=== PATIENT | female | born 1955 | race Caucasian/White ===

== ENCOUNTER 2017-01-05 06:04 | Day surgery (SDC) | payer OTHER ==
[~2017-01-05] VITALS: Ht 162.6 cm; Wt 89.3 kg
[2017-01-05] VITALS (10 sets, daily range): BP systolic 84–149; BP diastolic 52–66; PULSE 54–88; RESP 9–18; Ht 162.6 cm; Wt 89.3 kg
[~2017-01-05 06:04] MED LIST: OMEP40CA6 PO
[2017-01-05] MEDS ORDERED: CEFAZOLIN 1 GM/50 ML (PMX) 50 ML IVPB SCH (08:00)
--- NOTE | 2017-01-05 08:39 | RADRPT ---
PROCEDURE: XR Chest AP portable CLINICAL INDICATION: Transurethral bladder resection, bladder CA, preop TECHNIQUE: An AP portable radiograph of the chest was submitted. COMPARISON: None. FINDINGS: Support Hardware: None Cardiovascular: The cardiovascular silhouette appears unremarkable. Lung Hernandez: The lung hernandez appear clear with no nodule, alveolar infiltrate, or interstitial promi nence evident. Pleural Spaces: No pneumothorax or pleural effusion is identified. Osseous Structures: Moderate diffuse degenerative spine changes are noted. Soft Tissues: The soft tissues appear generous. IMPRESSION: Unremarkable portable chest. Physician Sancho Date Time Electronically viewed and signed by Physician Sancho on 01/05/2017 08:38 RH/
[2017-01-05] MEDS ORDERED: MIDAZOLAM 1 MG/ML 2 ML INJ ONE (09:28)
[2017-01-05] MEDS ORDERED: ONDANSETRON 4 MG INJ ONE (09:28)
[2017-01-05] MEDS ORDERED: GLYCOPYRROLATE 0.4 MG INJ ONE (09:28)
[2017-01-05] MEDS ORDERED: NEOSTIGMINE 3 MG/3 ML SYRINGE ONE (09:28)
[2017-01-05] MEDS ORDERED: CEFAZOLIN 1 GM INJ ONE (09:28)
[2017-01-05] MEDS ORDERED: FENTAnyl 50 MCG/ML VIAL ONE ×2 (09:28→10:53)
[2017-01-05] MEDS ORDERED: ROCURONIUM 50 MG INJ ONE (09:28)
[2017-01-05] MEDS ORDERED: PROPOFOL 20 ML ONE (09:28)
[2017-01-05] MEDS ORDERED: DEXAMETHASONE 4 MG/ML 1 ML INJ ONE (09:29)
--- NOTE | 2017-01-05 10:02 | HP ---
DATE OF ADMISSION: 01/05/2017 CHIEF COMPLAINT: Bladder cancer. HISTORY OF PRESENT ILLNESS: This patient has a history of bladder cancer. She is status post TURBT , chemotherapy and radiation in [place]. A recent cystoscopy in our office revealed further bladder tumor. She is now scheduled to undergo transurethral resection of her bladder tumor. PAST MEDICAL HISTORY: Bladder cancer. PAST SURGICAL HISTORY: Hysterectomy. ALLERGIES: NO KNOWN DRUG ALLERGIES. SOCIAL HISTORY: No smoke, no alcohol. FAMILY HISTORY: Noncontributory. REVIEW OF SYSTEMS: CONSTITUTIONAL: No fevers, no chills, no change in appetite, weight gain or weight loss. HEENT: No loss of hearing, no ear or sinus pain. No rhinorrhea, nosebleed or sore throat. CARDIOVASCULAR: No chest pain, no shortness of breath or heart palpitations. RESPIRATORY: No cough. No phlegm production, wheezing or hemoptysis. GASTROINTESTINAL: No abdominal pain, no cramping, no nausea. HEMATOLOGY/LYMPHATIC: No known bleeding problems. No easy bruising. No lymph node enlargement. PHYSICAL EXAMINATION: CONSTITUTIONAL: The patient appears to be in no acute distress. GASTROINTESTINAL: Abdomen is soft, normal bowel sounds, nondistended, nontender. Liver and spleen normal. GENITOURINARY: Kidneys, no CVA tenderness. Bladder, no suprapubic distention. EXTREMITIES: No edema. ASSESSMENT: Bladder cancer. PLAN: Transurethral resection of bladder tumor. The procedure has been explained to the patient in detail. Risks, benefits have been discussed. Other options have been discussed. The patient unde rstands that risks include, but are not limited to infection, bleeding, damage to adjacent structure s, heart problems, lung problems, possibility of need for further surgery, DVT, PE, OH, CVA, nonreso lution of symptoms, recurrence of symptoms, need for other treatments, need for other surgeries, elder dder perforation and urinary incontinence, ureteral injury, ureteral stricture, urethral stricture. All of her questions have been answered, no guarantees given. She would like to proceed. Dictated By: HAMIDA VU MD, SR/NTS Conf#: [id number] DID#: [id number]
[2017-01-05] MEDS ORDERED: KETOROLAC 30 MG INJ ONE (10:29)
[2017-01-05] MEDS ORDERED: MIDAZOLAM 1 MG/ML 2 ML INJ IV PRN (10:30)
[2017-01-05] MEDS ORDERED: MEPERIDINE 25 MG INJ IV PRN (10:30)
[2017-01-05] MEDS ORDERED: ONDANSETRON 4 MG INJ IV PRN (10:30)
[2017-01-05] MEDS ORDERED: TRIMETHOBENZAMIDE 100 MG/ML VIAL IM PRN (10:30)
[2017-01-05] MEDS ORDERED: LABETALOL HCL 20MG INJ IV PRN (10:30)
[2017-01-05] MEDS ORDERED: EPHEDrine SULFATE 50 MG/5 ML SYG IV PRN (10:30)
[2017-01-05] MEDS ORDERED: DIPHENHYDRAMINE 50 MG INJ IV PRN (10:30)
[2017-01-05] MEDS ORDERED: HYDROmorphONE (0.2 MG/ML) 10ML SYG IV PRN ×3 (10:30)
[2017-01-05] MEDS ORDERED: FENTAnyl 50 MCG/ML VIAL IV PRN ×3 (10:30)
[2017-01-05] MEDS ORDERED: hydrALAzine 20 MG INJ IV PRN (10:30)
--- NOTE | 2017-01-05 11:12 | PDOCDIS ---
Discharge Instructions CONDITION Patient Condition: Good HOME CARE INSTRUCTIONS: Diet Instructions: Regular ACTIVITY: Activity Restrictions: Avoid heavy lifting Bathing Restrictions: Shower FOLLOW UP/APPOINTMENTS Appointments one week OTHER ORDERS: Other Orders: keep cordova catheter to gravity HAMIDA VU January 05, 2017 11:12
--- NOTE | 2017-01-05 14:04 | OPR ---
DATE OF OPERATION: 01/05/2017 PREOPERATIVE DIAGNOSIS: Urothelial carcinoma of bladder or urethra. 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 OPERATION PERFORMED: 1. Cystoscopy with bladder biopsy. 2. Cystoscopy with bilateral ureteral catheterization for cytology. 3. Transurethral resection of urethral carcinoma (possibly in the diverticulum). INDICATIONS FOR PROCEDURE: This patient has a history of bladder cancer, status post radiation and chemotherapy, resection in [place]. Her workup has revealed further carcinoma. She is scheduled to undergo treatment of this problem. A preoperative MRI has revealed a lesion within the urethra worr isome for urothelial carcinoma within the diverticulum. Procedure has been explained to the patient in detail. Risk, benefits have been discussed. She understands risks include, but are not limited to infection, bleeding, damage to adjacent structures, heart problems, lung problems, possibility o f need for further surgery, DVT, PE, VT, CVA, nonresolution of symptoms, recurrence of symptoms, nee d for other treatments, need for other surgeries, bladder injury, urethral injury, incontinence, str icture or contracture formation. All of her questions have been answered, no guarantees given. She would like to proceed. FINDINGS: The left ureter upon catheterization exhibited a hydronephrotic drip. However, the patie nt's preoperative imaging had not revealed hydronephrosis. She was not preoperatively scheduled for ureteroscopy. Therefore, ureteroscopy was not done. A relatively large left urethral tumor was laya ntified which appeared to be deeply imbedded within the urethra. Furthermore, there was an appearan ce of a possible diverticulum within the urethra, where the tumor kept on extruding out as it was be ing resected. PROCEDURE IN DETAIL: The patient was brought to the operating room, underwent general anesthesia. She was placed in lithotomy position. Perineum and genitalia were prepped and draped in the usual s terile fashion. A 22-Italian cystoscope was then placed transurethrally. The papillary fronds were identified within the left urethral urethra near the bladder. These papillary fronds appeared to be mobile and possibly embedded as the urethra was pushed the tumor would pop out, but then would retr act back inside the urethra on the left side. Next, the bladder was examined within the bladder, no tumors were seen. The bladder mucosa did not contain any papillary tumors. The ureteral orifices were orthotopic. Bladder was washed for cytology collected and sent to pathology as bladder washing for cytology. The right ureteral orifice was intubated with a ureteral catheter. The ureter was then washed. The catheter was advanced up to the pelvis and washed in that area as well. The washings were collecte d and sent to pathology as right ureteral washing for cytology. Next, the left ureter was intubated and washed. Upon placement of the left ureteral catheter a brisk drainage into the collecting cup was identified, worrisome for a hydronephrotic drip. About 50 to 60 mL of fluid was collected from the left ureter. The ureter was washed with about 20 mL of saline, but about 50 to 60 mL of fluid w as collected and sent to pathology. There appeared to be a hydronephrotic drip from the left ureter . This was sent to pathology as left ureteral washing for cytology. Since patient had not been bhumi eduled for ureteroscopy a ureteroscopy on the left side was not done. The rigid biopsy forceps was then used to obtain biopsies from the bladder. The posterior bladder w all, trigone, left and right lateral yousif were all biopsied. These were sent to pathology for perm anent sectioning. The 26-Italian continuous resectoscope was placed under direct vision. The button electrode was then used to cauterize the areas of bladder biopsy. Once this was done, the resectoscope was used to re sect the tumor within the urethra. The cautery loop was brought onto the left area of the urethra. The cautery loop was used to resect what appeared to be a mobile tumor. As the resection was negro ed the scope was further compressed against the urethra on the left side and also along the posterio r aspect of the urethra. With compression further tumor popped out of what appeared to be possibly a diverticulum or a crevice. This tumor was also resected as the resection was carried a mucosal li earelne cavity was identified. This was then further resected. One finger was placed transvaginally to identify the area of resection and ensured that there was no perforation into the vagina. Resectio n was carried down to what appeared to be urethral muscle. All visible tumor was resected in this f ashion. The area of resection was essentially between the 2 o'clock position to the 6 o'clock posit ion along the left side of the urethra down to the posterior aspect. Furthermore, a digital examina tion through the vagina revealed no evidence of tumor extending into the vaginal mucosa. At this po int, the tumor specimen were all collected and sent to pathology as left urethral tumor resection. Next, the area of resection was cauterized using the button electrode. The entire resection was quirino ng carried with the bipolar resection instrumentation. Once excellent hemostasis had been obtained, bladder was reexamined. No further tumor specimen was seen. The areas of treatment were further e xamined and no bleeding was identified. A 22-Italian catheter was placed in the bladder. Bladder wa s placed on drainage. Drainage was clear. Patient was then placed back in a supine position. She was awakened, extubated, and taken to recovery room stable. POSTOPERATIVE CONDITION: Stable. COMPLICATIONS: None. BLOOD LOSS: Minimal. BLOOD ADMINISTERED: None. SPECIMENS SENT TO LAB: Washings from bladder, left and right ureters for cytology, bladder biopsies from the posterior bladder wall, right and left lateral yousif as well as the trigone. Furthermore, resection from left urethra tumor. Dictated By: HAMIDA VU MD SR/KARLA Conf#: [id number] DID#: [id number]
--- NOTE | 2017-01-06 05:56 | DS ---
DATE OF ADMISSION: 01/05/2017 DATE OF DISCHARGE: 01/05/2017 ADMITTING DIAGNOSIS: Urothelial carcinoma of bladder. DISCHARGE DIAGNOSIS: Urothelial carcinoma of the urethra. HOSPITAL COURSE: The patient was admitted to the hospital and underwent a transurethral resection o f tumor in the urethra as well as bilateral ureteral catheterization. She tolerated the procedure w ell, then she was transferred to recovery room. Once the patient was stable, tolerating her diet, r emaining afebrile and pain was well controlled, she was discharged home. DISCHARGE INSTRUCTIONS: Activity as tolerated. No heavy lifting. The patient may shower. Follow up in 1 to 2 weeks. MEDICATIONS: 1. [place]. 2. Cipro. Sifuentes catheter care was also instructed to the patient. Dictated By: HAMIDA VU MD, SR/KARLA Conf#: [id number] DID#: [id number]
== END 2017-01-05 14:20 | disposition home or self-care (01) ==
LOC: SDS 06:04
PROVIDERS: ATTEND Surgery Surgical Oncology
DX: C67.5 Malignant neoplasm of bladder neck (principal); E66.9 Obesity, unspecified; Z68.33 Body mass index [BMI] 33.0-33.9, adult
CPT/HCPCS: 52234; 71010; 88104; 88305; J0690; J1100; J1885; J2250; J2405; J2710; J3010; Z7512; Z7610

== ENCOUNTER 2017-01-21 08:00 | Emergency (ER) | payer OTHER ==
[~2017-01-21] VITALS: Ht 160 cm; Wt 90.0 kg
[2017-01-21 08:04] VITALS: Ht 160 cm; Wt 90.0 kg
[2017-01-21] MEDS ORDERED: CIPR500T4 PO (08:52)
--- NOTE | 2017-01-21 09:07 | ERD ---
ER Documentation Chief Complaint Date/Time DATE: 01/21/17 TIME: 09:06 Chief Complaint frequency of urination x 1 week , h/o bladder ca HPI This is a 61-year-old female with a history of bladder cancer who had surgery last week and was having an indwelling Sifuentes for 7 days. The Sifuentes was removed on Thursday, 2 days ago she says since that time she has been constantly dribbling urine uncontrollably. She has no hematuria she has no stomach pain no fever no back pain no hematuria no dysuria. She said that her doctor's office does not open until 9 so she is here. She is wanting another catheter because of the uncontrolled leaking having to wear a diaper. ROS All systems reviewed and are negative except as per history of present illness. Medications Home Meds Active Scripts Ciprofloxacin Hcl* (Ciprofloxacin Hcl*) 500 Mg Tablet, 500 MG PO BID for 7 Days , TAB Prov:BALDEV SHIELDS DO 01/21/17 Discontinued Reported Medications Omeprazole* (Omeprazole*) 40 Mg Capsule., 40 MG PO QAM, #30 CAP 03/13/16 Allergies Allergies: Coded Allergies: No Known Allergy (Unverified , 01/21/17) PMhx/Soc History of Surgery: Yes (APPENDECTOMY 2001, HYSTERCTOMY , Bladder recection 12/2016) Anesthesia Reaction: No Hx Neurological Disorder: No Hx Respiratory Disorders: No Hx Cardiac Disorders: No Hx Psychiatric Problems: No Hx Miscellaneous Medical Probl: No Hx Alcohol Use: No Hx Substance Use: No Hx Tobacco Use: No Smoking Status: Never smoker FmHx Family History: No coronary disease Physical Exam Vitals Vital Signs Date Time Temp Pulse Resp B/P Pulse Ox O2 Delivery O2 Flow Rate FiO2 01/21/17 08:04 98.1 67 18 129/58 98 Physical Exam Const: Well-developed, well-nourished Head: Atraumatic, normocephalic Eyes: Normal Conjunctiva, PERRLA, EOMI, normal sclera, no nystagmus ENT: Normal External Ears, Nose and Mouth, moist mucus membranes. Neck: Full range of motion. No meningismus, no lymphadenopathy. Resp: Clear to auscultation bilaterally, no wheezing, rhonchi, rales Cardio: Regular rate and rhythm, no murmurs, S1 S2 present Abd: Soft, non tender x 4, non distended. Normal bowel sounds, no guarding or rebound, no pulsitile abdominal masses or bruits Skin: No petechiae or rashes, no ecchymosis , no maculopapular rash Back: No midline or flank tenderness Ext: No cyanosis, or edema, FROM x 4, normal inspection, neurovascularly intact x 4 Neur: Awake and alert, STR 5/5 x 4, sensation intact x 4, no focal findings, cerebellum intact Psych: Normal Mood and Affect Procedures/MDM We will Place Sifuentes catheter and have her follow-up with her urologist this morning We will cover with Cipro Departure Diagnosis: Primary Impression: Genitourinary symptoms Condition: Stable Patient Instructions: Sifuentes Catheter, Care Referrals: DOCTOR,NOT ON STAFF (PCP) BALDEV SHIELDS DO January 21, 2017 09:07
== END 2017-01-21 11:06 | disposition home or self-care (01) ==
LOC: E/R 08:00
DX: R35.0 Frequency of micturition (principal); Z85.51 Personal history of malignant neoplasm of bladder
CPT/HCPCS: 51702; 87086; Z7502; Z7610

== ENCOUNTER 2017-03-06 05:35 | Inpatient (IN) | payer OTHER ==
[~2017-03-06] VITALS: Ht 162.6 cm; Wt 90.0 kg
[2017-03-06] VITALS (8 sets, daily range): BP systolic 115–159; BP diastolic 44–77; PULSE 69–115; RESP 8–18; Ht 162.6 cm; Wt 90.0 kg
[~2017-03-06 05:35] MED LIST changes: +CIPR500T4 PO; -OMEP40CA6 PO
[2017-03-06] MEDS ORDERED: CEFAZOLIN 1 GM/50 ML (PMX) 50 ML IVPB ONE (06:00)
[2017-03-06] MEDS ORDERED: OMEP20CA16 PO (06:42)
[2017-03-06 06:55] LABS: ADD SCAN DIFF NO
[2017-03-06] MEDS ORDERED: LACTATED RINGER'S 1,000 ML IV SCH (07:00)
[2017-03-06 07:17] LABS: BASOPHILS % 0.4 % (0.0-2.0); EOSINOPHILS # 0.1 10^3/ul (0.0-0.5); HEMATOCRIT 38.8 % (37.0-47.0); HEMOGLOBIN 12.6 g/dl (12.0-16.0); LYMPHOCYTES # 1.5 10^3/ul (0.8-2.9); LYMPHOCYTES % 27.6 % (15.0-51.0); MEAN CORPUSCULAR HEMOGLOBIN 29.5 pg (29.0-33.0); MEAN CORPUSCULAR HGB CONC 32.5 g/dl (32.0-37.0); MEAN CORPUSCULAR VOLUME 90.9 fl (82.0-101.0); MEAN PLATELET VOLUME 10.6 fl (7.4-10.4); MONOCYTE # 0.4 10^3/ul (0.3-0.9); MONOCYTES % 6.6 % (0.0-11.0); NEUTROPHIL # 3.5 10^3/ul (1.6-7.5); NEUTROPHILS % 63.2 % (39.0-77.0); PLATELET COUNT 274 10^3/UL (140-415); RED BLOOD COUNT 4.27 10^6/ul (4.20-5.40); RED CELL DISTRIBUTION WIDTH 13.3 % (11.5-14.5); WHITE BLOOD COUNT 5.5 10^3/ul (4.8-10.8)
[2017-03-06 07:30] LABS: ADD UMIC YES; UR ASCORBIC ACID NEGATIVE (NEGATIVE); UR BACTERIA FEW /HPF (NONE SEEN); UR BILIRUBIN (Dip) NEGATIVE (NEGATIVE); UR BLOOD (Dip) 2+ mg/dL (NEGATIVE); UR CLARITY CLOUDY (CLEAR); UR COLOR YELLOW (YELLOW); UR GLUCOSE (Dip) NEGATIVE (NEGATIVE); UR KETONES (Dip) NEGATIVE (NEGATIVE); UR LEUKOCYTE ESTERASE (Dip) 2+ Leu/ul (NEGATIVE); UR NITRITE (Dip) NEGATIVE (NEGATIVE); UR RBC 30 /HPF (0-5); UR SPECIFIC GRAVITY (Dip) 1.011 (1.003-1.030); UR SQUAMOUS EPITHELIAL CELL FEW /HPF (FEW); UR TOTAL PROTEIN (Dip) 1+ mg/dl (NEGATIVE); UR UROBILINOGEN (Dip) NEGATIVE (NEGATIVE)
[2017-03-06 07:44] LABS: PROTIME 13.2 Sec (12.2-14.2)
[2017-03-06 07:45] LABS: PARTIAL THROMBOPLASTIN TIME 29.4 Sec (25.0-35.0)
[2017-03-06 08:19] LABS: CALCIUM 9.5 mg/dl (8.4-10.2); CREATININE 0.7 mg/dl (0.44-1.00); POTASSIUM 3.6 mmol/L (3.5-5.1)
[2017-03-06] MEDS ORDERED: MIDAZOLAM 1 MG/ML 2 ML INJ ONE (08:23)
[2017-03-06] MEDS ORDERED: FENTAnyl 50 MCG/ML VIAL ONE (08:23)
[2017-03-06] MEDS ORDERED: PROPOFOL 20 ML ONE (08:23)
[2017-03-06] MEDS ORDERED: ROCURONIUM 50 MG INJ ONE ×2 (08:29→13:15)
[2017-03-06] MEDS ORDERED: SUCCINYLCHOLINE CHLORIDE 100 MG/5 ML SYG IV ONE (08:30)
[2017-03-06] MEDS ORDERED: PHENYLephrine (100 MCG/ML) 5ML SYG ONE (08:30)
[2017-03-06] MEDS ORDERED: morphine SULFATE/PF (10 MG/10 ML) INJ ONE (08:31)
[2017-03-06] MEDS ORDERED: BUPIVACAINE 0.25% (MPF) 30 ML INJ ONE (08:31)
[2017-03-06] MEDS ORDERED: CEFTRIAXONE 2 GM/NS 50 ML IVPB ONE (10:00)
[2017-03-06] MEDS ORDERED: metroNIDAZOLE 500 MG/NS (PMX) 100 ML IVPB ONE (10:00)
[2017-03-06] MEDS ORDERED: LIDOCAINE 2%/EPI 30 ML INJ ONE (10:03)
[2017-03-06] MEDS ORDERED: HYDROmorphONE 2 MG/ML SYG ONE ×4 (10:06→14:07)
[2017-03-06] MEDS ORDERED: ONDANSETRON 4 MG INJ IV PRN ×2 (12:30→18:00)
[2017-03-06] MEDS ORDERED: HYDROmorphONE 1 MG/ML SYG IV PRN (12:30)
[2017-03-06] MEDS ORDERED: DIPHENHYDRAMINE 50 MG INJ IV PRN (12:30)
[2017-03-06] MEDS ORDERED: MEPERIDINE 25 MG INJ IV PRN (12:30)
[2017-03-06] MEDS ORDERED: EPHEDrine SULFATE 50 MG/5 ML SYG IV PRN (12:30)
[2017-03-06] MEDS ORDERED: LABETALOL HCL 20MG INJ IV PRN (12:30)
[2017-03-06] MEDS ORDERED: hydrALAzine 20 MG INJ IV PRN (12:30)
[2017-03-06] MEDS ORDERED: PROCHLORPERAZINE 10 MG INJ IV PRN (12:30)
[2017-03-06 12:36] LABS: AADO2 Arterial 308.8 mmHg (7.0-24.0); Arterial Base Excess -2.7 mmol/L (-3.0-3); Arterial COHb 0.3 % (0.0-3.0); Arterial Fraction of Oxyhgb 98.5 % (93.0-99.0); Arterial HCO3 20.9 mmol/L (22.0-26.0); Arterial MetHb 0.4 % (0.0-1.5); Arterial Total Hemglobin 11.4 g/dl (12.0-18.0); MODE SURGERY
[2017-03-06] MEDS ORDERED: CA CHLORIDE 10% 10 ML SYRINGE ONE ×2 (13:15→13:18)
[2017-03-06] MEDS ORDERED: NA BICARBONATE 8.4% 50 ML SYG ONE ×3 (13:15→17:20)
[2017-03-06] MEDS ORDERED: POTASSIUM CHLORIDE 50 ML ONE ×2 (13:15→13:45)
[2017-03-06] MEDS ORDERED: HETASTARCH 6% ONE (13:19)
[2017-03-06] MEDS ORDERED: NACL ONE (13:19)
--- NOTE | 2017-03-06 14:01 | RADRPT ---
Vent Rate: 57 bpm RR Interval: 0 msec OK Interval: 164 msec QRS Duration: 82 msec QT Interval: 454 msec QTC Interval: 441 msec P-R-T Rea: 42 - 7 - 3 degrees Sinus bradycardia Nonspecific ST and T wave abnormality Abnormal ECG Electronically Signed By: Haile Mcgarry [id number]
[2017-03-06 14:03] LABS: POTASSIUM 3.2 mmol/L (3.5-5.1)
[2017-03-06 16:37] LABS: AADO2 Arterial 272.8 mmHg (7.0-24.0); Allen Test ACCEPTAB; Arterial Base Excess -2.4 mmol/L (-3.0-3); Arterial COHb 0.2 % (0.0-3.0); Arterial Fraction of Oxyhgb 98.5 % (93.0-99.0); Arterial HCO3 21.3 mmol/L (22.0-26.0); Arterial MetHb 0.3 % (0.0-1.5); Arterial Total Hemglobin 8.7 g/dl (12.0-18.0); MODE AMBU BAG
[2017-03-06 16:40] LABS: ADD SCAN DIFF NO
[2017-03-06] MEDS ORDERED: DEXAMETHASONE 4 MG/ML 1 ML INJ ONE (16:41)
[2017-03-06] MEDS ORDERED: METOCLOPRAMIDE 10 MG INJ ONE (16:41)
[2017-03-06] MEDS ORDERED: ONDANSETRON 4 MG INJ ONE (16:41)
[2017-03-06 16:43] LABS: ABNORMAL IP MESSAGE 1; HEMATOCRIT 18.6 % (37.0-47.0); MEAN CORPUSCULAR HEMOGLOBIN 30.8 pg (29.0-33.0); MEAN CORPUSCULAR HGB CONC 33.3 g/dl (32.0-37.0); MEAN CORPUSCULAR VOLUME 92.5 fl (82.0-101.0); MEAN PLATELET VOLUME 10.2 fl (7.4-10.4); PLATELET COUNT 168 10^3/UL (140-415); RED BLOOD COUNT 2.01 10^6/ul (4.20-5.40); RED CELL DISTRIBUTION WIDTH 13.3 % (11.5-14.5); WHITE BLOOD COUNT 4.9 10^3/ul (4.8-10.8)
[2017-03-06] MEDS ORDERED: ALBUMIN HUMAN 5% 500 ML ONE ×2 (16:43→16:45)
[2017-03-06] MEDS ORDERED: ALBUMIN HUMAN 25% 200 ML ONE (16:45)
[2017-03-06 17:17] LABS: ALBUMIN 2.6 g/dl (3.3-4.9); ALBUMIN/GLOBULIN RATIO 1.73; BILIRUBIN,INDIRECT 0.3 mg/dl (0-1.1); BILIRUBIN,TOTAL 0.3 mg/dl (0.2-1.3); TOTAL PROTEIN 4.1 g/dl (6.1-8.1)
[2017-03-06 17:18] LABS: CALCIUM 10.1 mg/dl (8.4-10.2); CREATININE 0.72 mg/dl (0.44-1.00); POTASSIUM 4.3 mmol/L (3.5-5.1)
[2017-03-06] MEDS ORDERED: SILVER SULFADIAZINE 1% 50 GM CR TOP ONE (17:33)
[2017-03-06 17:36] LABS: LYMPHOCYTES # 0.3 10^3/ul (0.8-2.9); NEUTROPHIL # 4.3 10^3/ul (1.6-7.5)
--- NOTE | 2017-03-06 18:22 | RADRPT ---
PROCEDURE: XR Chest. CLINICAL INDICATION: Central line placement. TECHNIQUE: Single frontal view of the chest was obtained. COMPARISON: None FINDINGS: A central venous catheter enters from right internal jugular approach with its tip in the right atri um. No pneumothorax is identified. There is plate-like atelectasis on the left heart border. Ther e are degenerative osteophytes in the thoracic spine. An NG tube is positioned distal to the GE jani ction. The heart, cardiomediastinal silhouette and hilar structures are normal. The pulmonary vascu lature is normal. There is a left-sided aorta. The remaining lung hernandez are clear. The costophr enic angles are normal. IMPRESSION: 1. Spondylosis of the thoracic spine. 2. NG tube is noted distal to the GE junction. 3. A central venous catheter enters from right internal jugular approach with its tip in the right atrium. No pneumothorax is identified. 4. There is no evidence of active cardiopulmonary disease. RPTAT:AAJJ Physician Wily Date Time Electronically viewed and signed by Physician Wily on 03/06/2017 18:21 LES/
--- NOTE | 2017-03-06 18:23 | RADRPT ---
PROCEDURE: XR Abdomen. CLINICAL INDICATION: Abdominal pain. Intraoperative. Foreign body. TECHNIQUE: Two views. AP supine and lateral supine. COMPARISON: None. FINDINGS: Midline skin maximilian are noted. Surgical drains are present in the pelvis. A nasogastric tube is p resent. There are bilateral ureteral stents extending 10/01 probable ileal loop in the right upper quadrant. A catheter is noted overlying the ileal loop. There is no other radiopaque foreign body. The bowel gas pattern is normal with no evidence of obstruction. There are no abnormal calcifications overlying the urinary tracts. There are mild degenerative changes of the spine. IMPRESSION: 1. Postoperative changes as described above. 2. No other abnormal radiopaque foreign body. RPTAT: QQ .Kyle Call MD, MD Date Time Electronically viewed and signed by .Kyle Call MD, on 03/06/2017 18:23 .R/
--- NOTE | 2017-03-06 20:38 | OPPN ---
Date/Time of Note Date/Time of Note DATE: 03/06/17 TIME: 20:37 Anesthesia Follow up Anesthesia Follow up Last documented vital signs Vital Signs Date Time Temp Pulse Resp B/P Pulse Ox O2 Delivery O2 Flow Rate FiO2 03/06/17 20:00 92 03/06/17 18:45 9 159/75 100 Mask 03/06/17 18:21 97.9 Comments CXR reviewed postop with R IJ central line at R atrial level. Line pulled back 3 cm, covered with occlusive dressing and repeat CXR ordered to confirm improved position BETH OSUNA MD Mar 06, 2017 20:38
--- NOTE | 2017-03-06 22:16 | RADRPT ---
PROCEDURE: XR Chest. CLINICAL INDICATION: Central venous line placement. TECHNIQUE: PA and Lateral views of the chest were obtained. COMPARISON: Today, about 2-1/2 hours ago. FINDINGS: Right central venous line has been repositioned to place tip in the superior vena cava right atrial junction. Nasogastric tube again seen with tip in the stomach. Cardiomegaly. Partially visualized pigtail catheter over expected location of the right renal pelvis . The lungs are clear. No signs of pleural fluid or pneumothorax are seen. The osseous structures and soft tissues are unremarkable. IMPRESSION: Right central venous line has been repositioned to place tip in the superior vena cava right atrial junction. RPTAT: UU Physician Hiral Date Time Electronically viewed and signed by Physician Hiral on 03/06/2017 22:16 RS/
[2017-03-06] MEDS: D5-NS + KCL 20 MEQ 1,000 ML IV SCH (22:39)
[2017-03-06] MEDS: CEFOTAXIME 1 GM/50 ML (PMX) 50 ML IVPB SCH (22:39)
[2017-03-06 23:05] LABS: ADD SCAN DIFF NO
[2017-03-06 23:06] LABS: ABNORMAL IP MESSAGE 1; HEMATOCRIT 32.5 % (37.0-47.0); HEMOGLOBIN 11.1 g/dl (12.0-16.0); MEAN CORPUSCULAR HGB CONC 34.2 g/dl (32.0-37.0); MEAN CORPUSCULAR VOLUME 90.8 fl (82.0-101.0); MEAN PLATELET VOLUME 10.2 fl (7.4-10.4); PLATELET COUNT 215 10^3/UL (140-415); RED BLOOD COUNT 3.58 10^6/ul (4.20-5.40); WHITE BLOOD COUNT 7.7 10^3/ul (4.8-10.8)
[2017-03-06 23:43] LABS: LYMPHOCYTES # 0.5 10^3/ul (0.8-2.9); MONOCYTE # 0.2 10^3/ul (0.3-0.9); NEUTROPHIL # 6.2 10^3/ul (1.6-7.5); PLATELET ESTIMATE PLT APPEAR ADEQUATE
[2017-03-07] VITALS (24 sets, daily range): BP systolic 94–134; BP diastolic 31–76; PULSE 101–128; RESP 11–27
[2017-03-07] MEDS: morphine 4 MG/ML VIAL IV PRN ×4 (04:33→18:14)
[2017-03-07] MEDS: PANTOPRAZOLE 40 MG INJ IV SCH (05:18)
[2017-03-07] MEDS: CEFOTAXIME 1 GM/50 ML (PMX) 50 ML IVPB SCH ×4 (05:18→17:23)
[2017-03-07 05:55] LABS: ADD SCAN DIFF NO
[2017-03-07 05:58] LABS: HEMATOCRIT 31.5 % (37.0-47.0); HEMOGLOBIN 10.5 g/dl (12.0-16.0); LYMPHOCYTES # 0.6 10^3/ul (0.8-2.9); LYMPHOCYTES % 6.4 % (15.0-51.0); MEAN CORPUSCULAR HEMOGLOBIN 30.3 pg (29.0-33.0); MEAN CORPUSCULAR HGB CONC 33.3 g/dl (32.0-37.0); MEAN PLATELET VOLUME 10.3 fl (7.4-10.4); MONOCYTE # 0.4 10^3/ul (0.3-0.9); MONOCYTES % 4.2 % (0.0-11.0); NEUTROPHIL # 8.7 10^3/ul (1.6-7.5); NEUTROPHILS % 89.1 % (39.0-77.0); PLATELET COUNT 210 10^3/UL (140-415); RED BLOOD COUNT 3.46 10^6/ul (4.20-5.40); RED CELL DISTRIBUTION WIDTH 14.9 % (11.5-14.5); WHITE BLOOD COUNT 9.8 10^3/ul (4.8-10.8)
[2017-03-07 06:58] LABS: ALBUMIN 3.1 g/dl (3.3-4.9); ALBUMIN/GLOBULIN RATIO 1.93; BILIRUBIN,INDIRECT 0.2 mg/dl (0-1.1); BILIRUBIN,TOTAL 0.2 mg/dl (0.2-1.3); CALCIUM 8.2 mg/dl (8.4-10.2); CREATININE 0.82 mg/dl (0.44-1.00); POTASSIUM 4.4 mmol/L (3.5-5.1); TOTAL PROTEIN 4.7 g/dl (6.1-8.1)
[2017-03-07] MEDS: D5-NS + KCL 20 MEQ 1,000 ML IV SCH ×2 (07:41→07:42)
[2017-03-07] MEDS: DEXTROSE 5%-0.45% NACL 1,000 ML IV SCH ×2 (10:41→21:52)
--- NOTE | 2017-03-07 12:16 | CONS ---
Date/Time of Note Date/Time of Note DATE: 03/07/17 TIME: 12:15 Assessment/Plan Assessment/Plan Chief Complaint/Hosp Course 61-year-old female for home were consulted to provide medical management with the following problems: 1. 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 Normocytic anemia likely secondary to chronic disease 3. Bandemia rule out sepsis 4. Mild transaminitis likely reactive Plan: Continue ICU monitoring and management until cleared for transfer by urology Continue NG tube and a urinary output monitoring Continue pain management and supportive care We will order hemoglobin A1c to rule out occult diabetes, institute a sliding scale regimen for now Consider blood as well as urine cultures if bandemia persists Continue gentle hydration Further interventions per clinical course Thank you for this consult will follow the patient with Problems: Consultation Date/Type/Reason Admit Date/Time Mar 06, 2017 at 05:35 Date of Consultation: Mar 07, 2017 Type of Consultation: Medicine Reason for Consultation Medical management Hx of Present Illness 61-year-old female with a past medical history of bladder cancer who was admitted March 06, 2017 for an elective radical cystectomy with anterior vaginectomy and ileal conduit urinary diversion placement which was done February. 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 Patient states she does not see an oncologist, and she seems to think that she will not require chemotherapy after the surgery. She has been diagnosed with uroepithelial carcinoma of the urethra. Currently she is lethargic but denies any significant pain. She also denies fever or shortness of breath. Nursing staff also report no real concerns except for mild hyperglycemia. Patient is not diabetic prior. 12 point review if systems was done and pertinent findings are as noted. 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 Hysterectomy 2. Appendectomy 3. Cholecystectomy 4. Recent cystoscopy with urethral carcinoma excision Family History Significant Family History: no pertinent family hx Social History Smoking Status: Never smoker Drug Use: none Exam/Review of Systems Vital Signs Vitals Vital Signs Date Time Temp Pulse Resp B/P Pulse Ox O2 Delivery O2 Flow Rate FiO2 03/07/17 11:00 99.0 106 15 110/54 97 Nasal Cannula 2.0 Intake and Output 03/06/17 03/06/17 03/07/17 15:00 23:00 07:00 Intake Total 2700 ml 875 ml 800 ml Output Total 1735 ml 1025 ml Balance 2700 ml -860 ml -225 ml Exam Constitutional: alert, oriented, lethargic Head: atraumatic, normocephalic / NGT Neck: non-tender, supple Respiratory: clear to auscultation Cardiovascular: regular rate and rhythm Gastrointestinal: S/good bowel sounds/urostomy bag noted, empty / multiple drains Extremities: no edema, good radial pulses Results Result Diagram: 03/07/17 0526 03/07/17 0526 Results 24 hrs Laboratory Tests Test 03/06/17 12:22 03/06/17 12:23 03/06/17 16:13 03/06/17 22:45 Sodium Level 136 144 Potassium Level 3.2 L 4.3 Chloride Level 108 107 Carbon Dioxide Level 21 24 Anion Gap 10 # 17 #H Blood Gas Specimen Source Blood arterial Blood arterial Arterial Blood Date Drawn 03/06/2017 12:20:22 PM 03/06/2017 4:24:43 PM Arterial Blood pH (Temp corrected) 7.428 7.437 Arterial Blood pCO2 (Temp correct) 32.4 L 32.3 L Arterial Blood pO2 (Temp corrected) 371.8 H 407.9 H Arterial Blood HCO3 20.9 L 21.3 L Arterial Blood Base Excess -2.7 -2.4 Arterial Blood Oxygen Saturation 99.2 H 99.0 H Demetrius Test N/A ACCEPTAB Arterial Blood Gas Puncture Site A-Line A-Line Arterial Blood Carboxyhemoglobin 0.3 0.2 Arterial Blood Methemoglobin 0.4 0.3 Blood Gas A-a O2 Differential 308.8 H 272.8 H Oxyhemoglobin Percent 98.5 98.5 Total Hemoglobin 11.4 L 8.7 L Blood Gas Temperature 37.0 37.0 Blood Gas Modality SURGERY AMBU BAG FiO2 100.0 100.0 Blood Gas Notified Whom ESHA Bhandari Blood Gas Notified Time 03/06/2017 12:36:00 PM 03/06/2017 4:36:35 PM White Blood Count 4.9 7.7 # Red Blood Count 2.01 #L 3.58 #L Hemoglobin 6.2 #*L 11.1 #L Hematocrit 18.6 #L 32.5 #L Mean Corpuscular Volume 92.5 90.8 Mean Corpuscular Hemoglobin 30.8 31.0 Mean Corpuscular Hemoglobin Concent 33.3 34.2 Red Cell Distribution Width 13.3 14.0 Platelet Count 168 # 215 # Mean Platelet Volume 10.2 10.2 Neutrophils % 88.0 H 81.0 H Band Neutrophils % 5.0 11.0 H Lymphocytes % 6.0 L 6.0 L Monocytes % 1.0 2.0 Eosinophils % Neutrophils # 4.3 6.2 Lymphocytes # 0.3 L 0.5 L Monocytes # 0.0 L 0.2 L Eosinophils # Blood Urea Nitrogen 11 Creatinine 0.72 Glucose Level 181 Calcium Level 10.1 Total Bilirubin 0.3 Direct Bilirubin 0.00 Indirect Bilirubin 0.3 Aspartate Amino Transf (AST/SGOT) 84 H Alanine Aminotransferase (ALT/SGPT) 62 Alkaline Phosphatase 35 L Total Protein 4.1 L Albumin 2.6 L Globulin 1.50 Albumin/Globulin Ratio 1.73 Platelet Estimate PLT APPEAR ADEQUATE Test 03/07/17 05:26 White Blood Count 9.8 # Red Blood Count 3.46 L Hemoglobin 10.5 L Hematocrit 31.5 L Mean Corpuscular Volume 91.0 Mean Corpuscular Hemoglobin 30.3 Mean Corpuscular Hemoglobin Concent 33.3 Red Cell Distribution Width 14.9 H Platelet Count 210 Mean Platelet Volume 10.3 Neutrophils % 89.1 H Lymphocytes % 6.4 L Monocytes % 4.2 Eosinophils % 0.0 Basophils % 0.0 Nucleated Red Blood Cells % 0.0 Neutrophils # 8.7 H Lymphocytes # 0.6 L Monocytes # 0.4 Eosinophils # 0.0 Basophils # 0.0 Nucleated Red Blood Cells # 0.0 Sodium Level 149 H Potassium Level 4.4 Chloride Level 106 Carbon Dioxide Level 29 Anion Gap 18 H Blood Urea Nitrogen 11 Creatinine 0.82 Glucose Level 205 Calcium Level 8.2 L Magnesium Level 2.0 Total Bilirubin 0.2 Direct Bilirubin 0.00 Indirect Bilirubin 0.2 Aspartate Amino Transf (AST/SGOT) 84 H Alanine Aminotransferase (ALT/SGPT) 89 H Alkaline Phosphatase 40 L Total Protein 4.7 L Albumin 3.1 L Globulin 1.60 Albumin/Globulin Ratio 1.93 Medications Medications Current Medications Cefotaxime Sodium (Claforan 1gm/50 ml (Pmx)) 50 ml @ 100 mls/hr Q8H IVPB Last administered on 03/07/17 11:26; Admin Dose 100 MLS/HR; Start 03/06/17 at 18:00 ; Stop 03/09/17 at 17:59 Morphine Sulfate (morphine) 4 mg Q2H PRN IV PAIN LEVEL 6-10 Last administered on 03/07/17 08:04; Admin Dose 4 MG; Start 03/06/17 at 18:00 Acetaminophen (Tylenol Liquid) 650 mg Q6H PRN NGT PAIN AND OR ELEVATED TEMP; Start 03/06/17 at 18:30 Ondansetron HCl (Zofran Inj) 4 mg Q6H PRN IV NAUSEA AND/OR VOMITING Last administered on 03/07/17 04:32; Admin Dose 4 MG; Start 03/06/17 at 18:00 Pantoprazole 40 mg 40 mg DAILY@06 IV Last administered on 03/07/17 05:18; Admin Dose 40 MG; Start 03/07/17 at 06:00 Dextrose/Sodium Chloride (D5-1/2ns) 1,000 ml @ 100 mls/hr Q10H IV Last administered on 03/07/17 10:41; Admin Dose 100 MLS/HR; Start 03/07/17 at 10:30 Procedures Procedures PROCEDURE: XR Chest. CLINICAL INDICATION: Central line placement. TECHNIQUE: Single frontal view of the chest was obtained. COMPARISON: None FINDINGS: A central venous catheter enters from right internal jugular approach with its tip in the right atrium. No pneumothorax is identified. There is plate-like atelectasis on the left heart border. There are degenerative osteophytes in the thoracic spine. An NG tube is positioned distal to the GE junction. The heart, cardiomediastinal silhouette and hilar structures are normal. The pulmonary vasculature is normal. There is a left-sided aorta. The remaining lung hernandez are clear. The costophrenic angles are normal. IMPRESSION: 1. Spondylosis of the thoracic spine. 2. NG tube is noted distal to the GE junction. 3. A central venous catheter enters from right internal jugular approach with its tip in the right atrium. No pneumothorax is identified. 4. There is no evidence of active cardiopulmonary disease. RPTAT:AAJJ Physician Wily Date Time Electronically viewed and signed by Jose Armando Samuels Physician on 03/06/2017 18:21 JM/ CC: BETH OSUNA MD PROCEDURE: XR Abdomen. CLINICAL INDICATION: Abdominal pain. Intraoperative. Foreign body. TECHNIQUE: Two views. AP supine and lateral supine. COMPARISON: None. FINDINGS: Midline skin maximilian are noted. Surgical drains are present in the pelvis. A nasogastric tube is present. There are bilateral ureteral stents extending probable ileal loop in the right upper quadrant. A catheter is noted overlying the ileal loop. There is no other radiopaque foreign body. The bowel gas pattern is normal with no evidence of obstruction. There are no abnormal calcifications overlying the urinary tracts. There are mild degenerative changes of the spine. IMPRESSION: 1. Postoperative changes as described above. 2. No other abnormal radiopaque foreign body. RPTAT: QQ .Kyle Call MD, MD Date Time Electronically viewed and signed by .Kyle Call MD, on 03/06/2017 18:23 .R/ CC: HAMIDA VU BOLATITO M. Mar 07, 2017 12:16
--- NOTE | 2017-03-07 15:35 | OPR ---
Date/Time of Note Date/Time of Note DATE: 03/07/17 TIME: 15:32 Operative Report Preoperative Diagnosis Urethral cancer Postoperative Diagnosis Urethral cancer Operation/Procedure Performed Radical cystectomy, anterior vaginectomy, bilateral pelvic lymph node dissection , ileal conduit urinary diversion Surgeon: HAMIDA VU assistant infant toddler teacher: LATONYA NGUYEN M.D. Anesthesia: general Estimated Blood Loss: other (800cc) Specimens bladder/urethra/anterior vagina en-block Pelvic lymph nodes bilateral distal ureters Grafts/Implants 28 cm 7 fr bilateral ureteral stents Complications: None HAMIDA VU Mar 07, 2017 15:35
--- NOTE | 2017-03-07 15:51 | PN ---
Date/Time of Note Date/Time of Note DATE: 03/07/17 TIME: 15:44 Assessment/Plan VTE Prophylaxis VTE Prophylaxis Intervention: SCD's Lines/Catheters IV Catheter Type (from Nrsg): Central Line Central line insert date: Mar 06, 2017 Central line still needed: Yes Urinary Cath still in place: No Assessment/Plan Chief Complaint/Hosp Course Cystectomy/urethrectomy/anterior vaginectomy, BPLND, Ileal conduit urinary diversion Hypernatrermia POST OP pain Mild hyperglycemia Problems: Assessment/Plan 1. continue ICU care today, most likely trasfer out tomrw 2. Out of bed to chair 3. encourage IS use 4. change IVF from isotonic to hypotonic 5. Labs for tomrw Subjective 24 Hr Interval Summary Free Text/Dictation having abdominal incisional pain 6 -7/`0. Pain meds helping No vomit did not want to get out of bed Exam/Review of Systems Vital Signs Vitals Vital Signs Date Time Temp Pulse Resp B/P Pulse Ox O2 Delivery O2 Flow Rate FiO2 03/07/17 15:00 116 17 100/63 98 Nasal Cannula 2.0 03/07/17 11:00 99.0 Intake and Output 03/06/17 03/06/17 03/07/17 15:00 23:00 07:00 Intake Total 2700 ml 875 ml 800 ml Output Total 1735 ml 1025 ml Balance 2700 ml -860 ml -225 ml Exam Constitutional: alert, oriented (mild distress) Gastrointestinal: ascites, bowel sounds, distended (Mildly distendend), firm, hepatomegaly, mass, nl liver, spleen, non-tender, other (wounds C/D/I), rebound or guarding, soft, splenomegaly, surgical scars, tender Genitourinary - Female: CMT, CVA tenderness, nl adnexae, nl external genitalia , other (Stoma mild purple and edematous, no necrosis, tube intact), uterus Extremities: No calf tenderness, No clubbing, No cyanosis, No edema, No normal pulses, No other, No palpable cord, No pitting pedal edema, No tenderness Results Result Diagram: 03/07/17 0526 03/07/17 0526 Results 24 hrs Laboratory Tests Test 03/06/17 16:13 03/06/17 22:45 03/07/17 05:26 White Blood Count 4.9 7.7 # 9.8 # Red Blood Count 2.01 #L 3.58 #L 3.46 L Hemoglobin 6.2 #*L 11.1 #L 10.5 L Hematocrit 18.6 #L 32.5 #L 31.5 L Mean Corpuscular Volume 92.5 90.8 91.0 Mean Corpuscular Hemoglobin 30.8 31.0 30.3 Mean Corpuscular Hemoglobin Concent 33.3 34.2 33.3 Red Cell Distribution Width 13.3 14.0 14.9 H Platelet Count 168 # 215 # 210 Mean Platelet Volume 10.2 10.2 10.3 Neutrophils % 88.0 H 81.0 H 89.1 H Band Neutrophils % 5.0 11.0 H Lymphocytes % 6.0 L 6.0 L 6.4 L Monocytes % 1.0 2.0 4.2 Eosinophils % 0.0 Neutrophils # 4.3 6.2 8.7 H Lymphocytes # 0.3 L 0.5 L 0.6 L Monocytes # 0.0 L 0.2 L 0.4 Eosinophils # 0.0 Blood Gas Specimen Source Blood arterial Arterial Blood Date Drawn 03/06/2017 4:24:43 PM Arterial Blood pH (Temp corrected) 7.437 Arterial Blood pCO2 (Temp correct) 32.3 L Arterial Blood pO2 (Temp corrected) 407.9 H Arterial Blood HCO3 21.3 L Arterial Blood Base Excess -2.4 Arterial Blood Oxygen Saturation 99.0 H Demetrius Test ACCEPTAB Arterial Blood Gas Puncture Site A-Line Arterial Blood Carboxyhemoglobin 0.2 Arterial Blood Methemoglobin 0.3 Blood Gas A-a O2 Differential 272.8 H Oxyhemoglobin Percent 98.5 Total Hemoglobin 8.7 L Blood Gas Temperature 37.0 Blood Gas Modality AMBU BAG FiO2 100.0 Blood Gas Notified Whom Elisabet Blood Gas Notified Time 03/06/2017 4:36:35 PM Sodium Level 144 149 H Potassium Level 4.3 4.4 Chloride Level 107 106 Carbon Dioxide Level 24 29 Anion Gap 17 #H 18 H Blood Urea Nitrogen 11 11 Creatinine 0.72 0.82 Glucose Level 181 205 Calcium Level 10.1 8.2 L Total Bilirubin 0.3 0.2 Direct Bilirubin 0.00 0.00 Indirect Bilirubin 0.3 0.2 Aspartate Amino Transf (AST/SGOT) 84 H 84 H Alanine Aminotransferase (ALT/SGPT) 62 89 H Alkaline Phosphatase 35 L 40 L Total Protein 4.1 L 4.7 L Albumin 2.6 L 3.1 L Globulin 1.50 1.60 Albumin/Globulin Ratio 1.73 1.93 Platelet Estimate PLT APPEAR ADEQUATE Basophils % 0.0 Nucleated Red Blood Cells % 0.0 Basophils # 0.0 Nucleated Red Blood Cells # 0.0 Magnesium Level 2.0 Medications Medications Current Medications Cefotaxime Sodium (Claforan 1gm/50 ml (Pmx)) 50 ml @ 100 mls/hr Q8H IVPB Last administered on 03/07/17 11:26; Admin Dose 100 MLS/HR; Start 03/06/17 at 18:00 ; Stop 03/09/17 at 17:59 Morphine Sulfate (morphine) 4 mg Q2H PRN IV PAIN LEVEL 6-10 Last administered on 03/07/17 13:47; Admin Dose 4 MG; Start 03/06/17 at 18:00 Acetaminophen (Tylenol Liquid) 650 mg Q6H PRN NGT PAIN AND OR ELEVATED TEMP; Start 03/06/17 at 18:30 Ondansetron HCl (Zofran Inj) 4 mg Q6H PRN IV NAUSEA AND/OR VOMITING Last administered on 03/07/17 04:32; Admin Dose 4 MG; Start 03/06/17 at 18:00 Pantoprazole 40 mg 40 mg DAILY@06 IV Last administered on 03/07/17 05:18; Admin Dose 40 MG; Start 03/07/17 at 06:00 Dextrose/Sodium Chloride (D5-1/2ns) 1,000 ml @ 100 mls/hr Q10H IV Last administered on 03/07/17 10:41; Admin Dose 100 MLS/HR; Start 03/07/17 at 10:30 HAMIDA VU Mar 07, 2017 15:50
[2017-03-07] MEDS ORDERED: CALCIUM GLUCONATE 10% 1 GM in SOD CHLORIDE 0.9% 100 ML IVPB ONE (17:00)
[2017-03-07] MEDS: ACETAMINOPHEN 650MG/20.3ML CUP NGT PRN (22:23)
[2017-03-08] VITALS (23 sets, daily range): BP systolic 83–124; BP diastolic 41–72; PULSE 89–116; RESP 14–21
[2017-03-08] MEDS: morphine 4 MG/ML VIAL IV PRN ×6 (00:30→23:46)
[2017-03-08] MEDS: CEFOTAXIME 1 GM/50 ML (PMX) 50 ML IVPB SCH ×3 (03:35→17:16)
[2017-03-08 04:29] LABS: ADD SCAN DIFF NO
[2017-03-08 04:31] LABS: BASOPHILS % 0.2 % (0.0-2.0); EOSINOPHILS % 0.1 % (0.0-7.0); HEMOGLOBIN 9.6 g/dl (12.0-16.0); LYMPHOCYTES # 1.6 10^3/ul (0.8-2.9); LYMPHOCYTES % 12.8 % (15.0-51.0); MEAN CORPUSCULAR HGB CONC 33.1 g/dl (32.0-37.0); MEAN CORPUSCULAR VOLUME 93.5 fl (82.0-101.0); MEAN PLATELET VOLUME 10.6 fl (7.4-10.4); MONOCYTE # 0.7 10^3/ul (0.3-0.9); MONOCYTES % 5.4 % (0.0-11.0); NEUTROPHIL # 10.2 10^3/ul (1.6-7.5); PLATELET COUNT 194 10^3/UL (140-415); RED CELL DISTRIBUTION WIDTH 15.1 % (11.5-14.5); WHITE BLOOD COUNT 12.5 10^3/ul (4.8-10.8)
[2017-03-08 04:49] LABS: ALBUMIN 3.1 g/dl (3.3-4.9); ALBUMIN/GLOBULIN RATIO 1.55; BILIRUBIN,INDIRECT 0.2 mg/dl (0-1.1); BILIRUBIN,TOTAL 0.2 mg/dl (0.2-1.3); CALCIUM 7.9 mg/dl (8.4-10.2); CREATININE 0.86 mg/dl (0.44-1.00); POTASSIUM 3.8 mmol/L (3.5-5.1); TOTAL PROTEIN 5.1 g/dl (6.1-8.1)
[2017-03-08] MEDS: PANTOPRAZOLE 40 MG INJ IV SCH (05:18)
[2017-03-08] MEDS: DEXTROSE 5%-0.45% NACL 1,000 ML IV SCH ×4 (05:20→20:26)
--- NOTE | 2017-03-08 15:34 | PN ---
Date/Time of Note Date/Time of Note DATE: 03/08/17 TIME: 15:30 Assessment/Plan VTE Prophylaxis VTE Prophylaxis Intervention: SCD's Lines/Catheters IV Catheter Type (from Nrs): Central Line Urinary Cath still in place: Yes Assessment/Plan Chief Complaint/Hosp Course 61-year-old female for home were consulted to provide medical management with the following problems: 1. 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 Normocytic anemia likely secondary to chronic disease 3. Bandemia rule out sepsis 4. Mild transaminitis likely reactive Plan: Continue ICU monitoring and management until cleared for transfer by urology Continue NG tube and a urinary output monitoring Continue pain management and supportive care We will order hemoglobin A1c to rule out occult diabetes, institute a sliding scale regimen for now Consider blood as well as urine cultures if bandemia persists Continue gentle hydration consider starting lovenox tomorrow if ok with urology Further interventions per clinical course Thank you for this consult will follow the patient with Problems: Subjective 24 Hr Interval Summary Free Text/Dictation Patient continues to do well, nursing reports no acute overnight events Exam/Review of Systems Vital Signs Vitals Vital Signs Date Time Temp Pulse Resp B/P Pulse Ox O2 Delivery O2 Flow Rate FiO2 03/08/17 15:00 103 17 117/61 98 Nasal Cannula 2.0 03/08/17 12:00 98.9 Intake and Output 03/07/17 03/07/17 03/08/17 15:00 23:00 07:00 Intake Total 725 ml 850 ml 800 ml Output Total 965 ml 840 ml 325 ml Balance -240 ml 10 ml 475 ml Results Result Diagram: 03/08/17 0400 03/08/17 0400 Results 24 hrs Laboratory Tests Test 03/07/17 17:42 03/08/17 04:00 Bedside Glucose 158 White Blood Count 12.5 #H Red Blood Count 3.10 L Hemoglobin 9.6 L Hematocrit 29.0 L Mean Corpuscular Volume 93.5 Mean Corpuscular Hemoglobin 31.0 Mean Corpuscular Hemoglobin Concent 33.1 Red Cell Distribution Width 15.1 H Platelet Count 194 Mean Platelet Volume 10.6 H Neutrophils % 81.0 H Lymphocytes % 12.8 L Monocytes % 5.4 Eosinophils % 0.1 Basophils % 0.2 Nucleated Red Blood Cells % 0.0 Neutrophils # 10.2 H Lymphocytes # 1.6 Monocytes # 0.7 Eosinophils # 0.0 Basophils # 0.0 Nucleated Red Blood Cells # 0.0 Sodium Level 144 Potassium Level 3.8 Chloride Level 107 Carbon Dioxide Level 29 Anion Gap 12 Blood Urea Nitrogen 9 Creatinine 0.86 Glucose Level 180 Calcium Level 7.9 L Total Bilirubin 0.2 Direct Bilirubin 0.00 Indirect Bilirubin 0.2 Aspartate Amino Transf (AST/SGOT) 48 H Alanine Aminotransferase (ALT/SGPT) 70 H Alkaline Phosphatase 51 Total Protein 5.1 L Albumin 3.1 L Globulin 2.00 Albumin/Globulin Ratio 1.55 Medications Medications Current Medications Cefotaxime Sodium (Claforan 1gm/50 ml (Pmx)) 50 ml @ 100 mls/hr Q8H IVPB Last administered on 03/08/17 09:14; Admin Dose 100 MLS/HR; Start 03/06/17 at 18:00 ; Stop 03/09/17 at 17:59 Morphine Sulfate (morphine) 4 mg Q2H PRN IV PAIN LEVEL 6-10 Last administered on 03/08/17 11:11; Admin Dose 4 MG; Start 03/06/17 at 18:00 Acetaminophen (Tylenol Liquid) 650 mg Q6H PRN NGT PAIN AND OR ELEVATED TEMP Last administered on 03/07/17 22:23; Admin Dose 650 MG; Start 03/06/17 at 18:30 Ondansetron HCl (Zofran Inj) 4 mg Q6H PRN IV NAUSEA AND/OR VOMITING Last administered on 03/07/17 04:32; Admin Dose 4 MG; Start 03/06/17 at 18:00 Pantoprazole 40 mg 40 mg DAILY@06 IV Last administered on 03/08/17 05:18; Admin Dose 40 MG; Start 03/07/17 at 06:00 Dextrose/Sodium Chloride (D5-1/2ns) 1,000 ml @ 100 mls/hr Q10H IV Last administered on 03/08/17 08:44; Admin Dose 100 MLS/HR; Start 03/07/17 at 10:30 ALCON GONZALEZ Mar 08, 2017 15:34
--- NOTE | 2017-03-08 23:20 | PN ---
Date/Time of Note Date/Time of Note DATE: 03/08/17 TIME: 23:16 Assessment/Plan VTE Prophylaxis VTE Prophylaxis Intervention: ambulation, SCD's Lines/Catheters IV Catheter Type (from Nrsg): Central Line Central line still needed: Yes Urinary Cath still in place: No Assessment/Plan Chief Complaint/Hosp Course Cystectomy/urethrectomy/anterior vaginectomy, BPLND, Ileal conduit urinary diversion Hypernatrermia:improved POST OP pain Mild hyperglycemia Problems: Assessment/Plan Cont ICU D/C NGT tomrw Ambulate Labs for tomrw Cont IV Cont pain management Subjective 24 Hr Interval Summary Free Text/Dictation Pt in ICU C/O abdominal pain, difficult to get out of bed No vomit No flatus Exam/Review of Systems Vital Signs Vitals Vital Signs Date Time Temp Pulse Resp B/P Pulse Ox O2 Delivery O2 Flow Rate FiO2 03/08/17 21:23 1.0 03/08/17 21:00 101 15 111/54 98 Nasal Cannula 03/08/17 20:00 99.0 Intake and Output 03/07/17 03/07/17 03/08/17 15:00 23:00 07:00 Intake Total 725 ml 850 ml 800 ml Output Total 965 ml 840 ml 325 ml Balance -240 ml 10 ml 475 ml Exam Constitutional: alert, oriented Gastrointestinal: distended (mildly distended), other (Wounds C/D/I), soft Genitourinary - Female: other (No CVAT ) Extremities: No calf tenderness, No clubbing, No cyanosis, No edema, No normal pulses, No other, No palpable cord, No pitting pedal edema, No tenderness Results Result Diagram: 03/08/170 03/08/17 0400 Results 24 hrs Laboratory Tests Test 03/08/17 04:00 White Blood Count 12.5 #H Red Blood Count 3.10 L Hemoglobin 9.6 L Hematocrit 29.0 L Mean Corpuscular Volume 93.5 Mean Corpuscular Hemoglobin 31.0 Mean Corpuscular Hemoglobin Concent 33.1 Red Cell Distribution Width 15.1 H Platelet Count 194 Mean Platelet Volume 10.6 H Neutrophils % 81.0 H Lymphocytes % 12.8 L Monocytes % 5.4 Eosinophils % 0.1 Basophils % 0.2 Nucleated Red Blood Cells % 0.0 Neutrophils # 10.2 H Lymphocytes # 1.6 Monocytes # 0.7 Eosinophils # 0.0 Basophils # 0.0 Nucleated Red Blood Cells # 0.0 Sodium Level 144 Potassium Level 3.8 Chloride Level 107 Carbon Dioxide Level 29 Anion Gap 12 Blood Urea Nitrogen 9 Creatinine 0.86 Glucose Level 180 Calcium Level 7.9 L Total Bilirubin 0.2 Direct Bilirubin 0.00 Indirect Bilirubin 0.2 Aspartate Amino Transf (AST/SGOT) 48 H Alanine Aminotransferase (ALT/SGPT) 70 H Alkaline Phosphatase 51 Total Protein 5.1 L Albumin 3.1 L Globulin 2.00 Albumin/Globulin Ratio 1.55 Medications Medications Current Medications Cefotaxime Sodium (Claforan 1gm/50 ml (Pmx)) 50 ml @ 100 mls/hr Q8H IVPB Last administered on 03/08/17 17:16; Admin Dose 100 MLS/HR; Start 03/06/17 at 18:00 ; Stop 03/09/17 at 17:59 Morphine Sulfate (morphine) 4 mg Q2H PRN IV PAIN LEVEL 6-10 Last administered on 03/08/17 20:26; Admin Dose 4 MG; Start 03/06/17 at 18:00 Acetaminophen (Tylenol Liquid) 650 mg Q6H PRN NGT PAIN AND OR ELEVATED TEMP Last administered on 03/07/17 22:23; Admin Dose 650 MG; Start 03/06/17 at 18:30 Ondansetron HCl (Zofran Inj) 4 mg Q6H PRN IV NAUSEA AND/OR VOMITING Last administered on 03/07/17 04:32; Admin Dose 4 MG; Start 03/06/17 at 18:00 Pantoprazole 40 mg 40 mg DAILY@06 IV Last administered on 03/08/17 05:18; Admin Dose 40 MG; Start 03/07/17 at 06:00 Dextrose/Sodium Chloride (D5-1/2ns) 1,000 ml @ 100 mls/hr Q10H IV Last administered on 03/08/17 20:26; Admin Dose 100 MLS/HR; Start 03/07/17 at 10:30 HAMIDA VU Mar 08, 2017 23:20
[2017-03-08] MEDS: ACETAMINOPHEN 650MG/20.3ML CUP NGT PRN (23:46)
[2017-03-09] VITALS (39 sets, daily range): BP systolic 89–126; BP diastolic 38–82; PULSE 93–170; RESP 14–37
[2017-03-09] MEDS: CEFOTAXIME 1 GM/50 ML (PMX) 50 ML IVPB SCH ×2 (01:39→09:46)
[2017-03-09] MEDS: DEXTROSE 5%-0.45% NACL 1,000 ML IV SCH ×3 (03:52→18:11)
[2017-03-09 04:37] LABS: ADD SCAN DIFF NO
[2017-03-09 04:39] LABS: BASOPHILS % 0.2 % (0.0-2.0); EOSINOPHILS # 0.1 10^3/ul (0.0-0.5); EOSINOPHILS % 0.7 % (0.0-7.0); HEMOGLOBIN 8.6 g/dl (12.0-16.0); LYMPHOCYTES # 0.9 10^3/ul (0.8-2.9); LYMPHOCYTES % 7.7 % (15.0-51.0); MEAN CORPUSCULAR HEMOGLOBIN 30.2 pg (29.0-33.0); MEAN CORPUSCULAR HGB CONC 31.9 g/dl (32.0-37.0); MEAN CORPUSCULAR VOLUME 94.7 fl (82.0-101.0); MEAN PLATELET VOLUME 10.5 fl (7.4-10.4); MONOCYTE # 0.5 10^3/ul (0.3-0.9); MONOCYTES % 4.5 % (0.0-11.0); NEUTROPHIL # 10.2 10^3/ul (1.6-7.5); NEUTROPHILS % 86.2 % (39.0-77.0); PLATELET COUNT 187 10^3/UL (140-415); RED BLOOD COUNT 2.85 10^6/ul (4.20-5.40); RED CELL DISTRIBUTION WIDTH 14.9 % (11.5-14.5); WHITE BLOOD COUNT 11.8 10^3/ul (4.8-10.8)
[2017-03-09 05:15] LABS: ALBUMIN 3.1 g/dl (3.3-4.9); ALBUMIN/GLOBULIN RATIO 1.55; BILIRUBIN,INDIRECT 0.2 mg/dl (0-1.1); BILIRUBIN,TOTAL 0.2 mg/dl (0.2-1.3); CALCIUM 7.8 mg/dl (8.4-10.2); CREATININE 0.76 mg/dl (0.44-1.00); MAGNESIUM 2.2 mg/dl (1.7-2.5); POTASSIUM 3.5 mmol/L (3.5-5.1); TOTAL PROTEIN 5.1 g/dl (6.1-8.1)
[2017-03-09] MEDS: morphine 4 MG/ML VIAL IV PRN ×8 (05:44→22:57)
[2017-03-09] MEDS: PANTOPRAZOLE 40 MG INJ IV SCH (05:44)
--- NOTE | 2017-03-09 06:43 | PN ---
Date/Time of Note Date/Time of Note DATE: 03/09/17 TIME: 06:38 Assessment/Plan VTE Prophylaxis VTE Prophylaxis Intervention: ambulation, SCD's Lines/Catheters IV Catheter Type (from Nrsg): Central Line Central line still needed: Yes Urinary Cath still in place: No Assessment/Plan Chief Complaint/Hosp Course Cystectomy/urethrectomy/anterior vaginectomy, BPLND, Ileal conduit urinary diversion Hypernatrermia:improved POST OP pain elevated HR Problems: Assessment/Plan OK to transfer to med surg, if medicine agrees OOB to chair and ambulate clamp NGT recheck labs this afternoon Pt may need transfusion depending on HGB and HR Subjective 24 Hr Interval Summary Free Text/Dictation pt feeling better no flatus C/O abd pain: does not want to move But sat in [place] yesterday Exam/Review of Systems Vital Signs Vitals Vital Signs Date Time Temp Pulse Resp B/P Pulse Ox O2 Delivery O2 Flow Rate FiO2 03/09/17 06:00 120 19 102/47 97 Nasal Cannula 03/09/17 04:00 98.4 2.0 Intake and Output 03/08/17 03/08/17 03/09/17 15:00 23:00 07:00 Intake Total 750 ml 650 ml 850 ml Output Total 910 ml 670 ml 475 ml Balance -160 ml -20 ml 375 ml Exam Constitutional: alert, well developed Gastrointestinal: other (wound clean dry intact), soft Genitourinary - Female: other (Stoma more pink and less edema) Results Result Diagram: 03/09/17 0400 03/09/17 0400 Results 24 hrs Laboratory Tests Test 03/09/17 04:00 White Blood Count 11.8 H Red Blood Count 2.85 L Hemoglobin 8.6 L Hematocrit 27.0 L Mean Corpuscular Volume 94.7 Mean Corpuscular Hemoglobin 30.2 Mean Corpuscular Hemoglobin Concent 31.9 L Red Cell Distribution Width 14.9 H Platelet Count 187 Mean Platelet Volume 10.5 H Neutrophils % 86.2 H Lymphocytes % 7.7 L Monocytes % 4.5 Eosinophils % 0.7 Basophils % 0.2 Nucleated Red Blood Cells % 0.0 Neutrophils # 10.2 H Lymphocytes # 0.9 Monocytes # 0.5 Eosinophils # 0.1 Basophils # 0.0 Nucleated Red Blood Cells # 0.0 Sodium Level 142 Potassium Level 3.5 Chloride Level 107 Carbon Dioxide Level 29 Anion Gap 10 Blood Urea Nitrogen 9 Creatinine 0.76 Glucose Level 171 Hemoglobin A1c 6.1 H Calcium Level 7.8 L Magnesium Level 2.2 Total Bilirubin 0.2 Direct Bilirubin 0.00 Indirect Bilirubin 0.2 Aspartate Amino Transf (AST/SGOT) 33 Alanine Aminotransferase (ALT/SGPT) 55 Alkaline Phosphatase 61 Total Protein 5.1 L Albumin 3.1 L Globulin 2.00 Albumin/Globulin Ratio 1.55 Medications Medications Current Medications Cefotaxime Sodium (Claforan 1gm/50 ml (Pmx)) 50 ml @ 100 mls/hr Q8H IVPB Last administered on 03/09/17 01:39; Admin Dose 100 MLS/HR; Start 03/06/17 at 18:00 ; Stop 03/09/17 at 17:59 Morphine Sulfate (morphine) 4 mg Q2H PRN IV PAIN LEVEL 6-10 Last administered on 03/09/17 05:44; Admin Dose 4 MG; Start 03/06/17 at 18:00 Acetaminophen (Tylenol Liquid) 650 mg Q6H PRN NGT PAIN AND OR ELEVATED TEMP Last administered on 03/08/17 23:46; Admin Dose 650 MG; Start 03/06/17 at 18:30 Ondansetron HCl (Zofran Inj) 4 mg Q6H PRN IV NAUSEA AND/OR VOMITING Last administered on 03/07/17 04:32; Admin Dose 4 MG; Start 03/06/17 at 18:00 Pantoprazole 40 mg 40 mg DAILY@06 IV Last administered on 03/09/17 05:44; Admin Dose 40 MG; Start 03/07/17 at 06:00 Dextrose/Sodium Chloride (D5-1/2ns) 1,000 ml @ 100 mls/hr Q10H IV Last administered on 03/09/17 03:52; Admin Dose 100 MLS/HR; Start 03/07/17 at 10:30 HAMIDA VU Mar 09, 2017 06:42
[2017-03-09] MEDS: ACETAMINOPHEN 650MG/20.3ML CUP NGT PRN ×2 (09:46→16:22)
[2017-03-09 10:43] LABS: HEMOGLOBIN 6.2 g/dl (12.0-16.0)
--- NOTE | 2017-03-09 14:26 | RADRPT ---
PROCEDURE: XR Chest. CLINICAL INDICATION: Fever. Postoperative evaluation. TECHNIQUE: Single AP portable chest. COMPARISON: 03/06/2017 Chest x-ray FINDINGS: The cardiomediastinal silhouette is within normal limits of size. The support devices in stable posi tion. Chronic elevation right hemidiaphragm. Atherosclerotic calcification of the aorta. The lungs are clear without pleural effusion or focal consolidation. No pneumothorax. The osseous structures and soft tissues are unremarkable. IMPRESSION: 1. No focal consolidation or pleural effusion. No acute intrathoracic abnormality. 2. Support devices in stable and satisfactory position. . RPTAT:AAJJ Physician Shannan Date Time Electronically viewed and signed by Physician Sahnnan on 03/09/2017 14:26 BISHNU/
[2017-03-09 14:56] LABS: ADD SCAN DIFF NO
[2017-03-09 14:58] LABS: ABNORMAL IP MESSAGE 1; HEMATOCRIT 29.1 % (37.0-47.0); HEMOGLOBIN 9.4 g/dl (12.0-16.0); MEAN CORPUSCULAR HEMOGLOBIN 30.6 pg (29.0-33.0); MEAN CORPUSCULAR HGB CONC 32.3 g/dl (32.0-37.0); MEAN CORPUSCULAR VOLUME 94.8 fl (82.0-101.0); MEAN PLATELET VOLUME 9.9 fl (7.4-10.4); PLATELET COUNT 188 10^3/UL (140-415); RED BLOOD COUNT 3.07 10^6/ul (4.20-5.40); RED CELL DISTRIBUTION WIDTH 14.6 % (11.5-14.5); WHITE BLOOD COUNT 2.4 10^3/ul (4.8-10.8)
[2017-03-09 15:35] LABS: ALBUMIN 2.9 g/dl (3.3-4.9); CALCIUM 7.8 mg/dl (8.4-10.2); CREATININE 0.85 mg/dl (0.44-1.00); PHOSPHORUS 3.3 mg/dl (2.5-4.9); POTASSIUM 3.6 mmol/L (3.5-5.1)
--- NOTE | 2017-03-09 16:37 | PN ---
Date/Time of Note Date/Time of Note DATE: 03/09/17 TIME: 16:14 Assessment/Plan VTE Prophylaxis VTE Prophylaxis Intervention: SCD's Lines/Catheters IV Catheter Type (from Nrs): Central Line Central line still needed: Yes Urinary Cath still in place: No Assessment/Plan Chief Complaint/Hosp Course Assessment Sepsis, tachycardia and fever with abdominal source Fever Tachycardia, sinus Abdominal pain Electrolyte derangement Hypoalbuminemia Elevated AST and ALT, resolved Prediabetes Bladder cancer, status post multiple resections Vaginectomy Ureterectomy Cystectomy Ileal conduit urinary diversion Plan -Still in the ICU, will keep in ICU for now as patient is developing worsening tachycardia and fever. Patient finished course of third-generation cephalosporin, will start Zosyn. -Blood cultures pending -Chest x-ray within normal limits -Monitor closely in ICU, pain control as needed -Urology closely following, patient still n.p.o., has not passed gas, on IV fluids -NG tube has been clamped today, monitor, surgery Recs appreciated -As needed medications for pain and for tachycardia Yogi Howell DO Problems: Subjective 24 Hr Interval Summary Free Text/Dictation no new complaints still has abdominal pain, but same as before tachycardic/shivering momentarily after morphine administration, but resolved and patient not complaining Exam/Review of Systems Vital Signs Vitals Vital Signs Date Time Temp Pulse Resp B/P Pulse Ox O2 Delivery O2 Flow Rate FiO2 03/09/17 15:10 170 03/09/17 15:00 19 113/69 03/09/17 14:15 100 03/09/17 14:00 Nasal Cannula 2.0 03/09/17 12:00 99.6 Intake and Output 03/08/17 03/08/17 03/09/17 15:00 23:00 07:00 Intake Total 750 ml 650 ml 950 ml Output Total 910 ml 670 ml 550 ml Balance -160 ml -20 ml 400 ml Exam Physical exam General: Patient is laying in bed and answers questions appropriately Mentation: Patient is alert and oriented 4, Head: Normocephalic atraumatic Eyes: EOMI, pupils reactive to light Neck: Supple, nontender, midline Respiratory: Clear to auscultation, short breaths Cardiovascular: Tachycardic, no obvious murmurs Gastrointestinal: 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 Neurological: Moves all extremities spontaneously Skin: No new skin lesions Results Result Diagram: 03/09/17 1450 03/09/17 1450 Results 24 hrs Laboratory Tests Test 03/09/17 04:00 03/09/17 14:44 03/09/17 14:50 White Blood Count 11.8 H 2.4 #L Red Blood Count 2.85 L 3.07 L Hemoglobin 8.6 L 9.4 L Hematocrit 27.0 L 29.1 L Mean Corpuscular Volume 94.7 94.8 Mean Corpuscular Hemoglobin 30.2 30.6 Mean Corpuscular Hemoglobin Concent 31.9 L 32.3 Red Cell Distribution Width 14.9 H 14.6 H Platelet Count 187 188 Mean Platelet Volume 10.5 H 9.9 Neutrophils % 86.2 H Lymphocytes % 7.7 L Monocytes % 4.5 Eosinophils % 0.7 Basophils % 0.2 Nucleated Red Blood Cells % 0.0 Neutrophils # 10.2 H Lymphocytes # 0.9 Monocytes # 0.5 Eosinophils # 0.1 Basophils # 0.0 Nucleated Red Blood Cells # 0.0 Sodium Level 142 144 Potassium Level 3.5 3.6 Chloride Level 107 106 Carbon Dioxide Level 29 23 Anion Gap 10 19 #H Blood Urea Nitrogen 9 9 Creatinine 0.76 0.85 Glucose Level 171 162 Hemoglobin A1c 6.1 H Calcium Level 7.8 L 7.8 L Magnesium Level 2.2 2.0 Total Bilirubin 0.2 Direct Bilirubin 0.00 Indirect Bilirubin 0.2 Aspartate Amino Transf (AST/SGOT) 33 Alanine Aminotransferase (ALT/SGPT) 55 Alkaline Phosphatase 61 Total Protein 5.1 L Albumin 3.1 L 2.9 L Globulin 2.00 Albumin/Globulin Ratio 1.55 Bedside Glucose 144 Phosphorus Level 3.3 Medications Medications Current Medications Cefotaxime Sodium (Claforan 1gm/50 ml (Pmx)) 50 ml @ 100 mls/hr Q8H IVPB Last administered on 03/09/17 09:46; Admin Dose 100 MLS/HR; Start 03/06/17 at 18:00 ; Stop 03/09/17 at 17:59 Morphine Sulfate (morphine) 4 mg Q2H PRN IV PAIN LEVEL 6-10 Last administered on 03/09/17 13:53; Admin Dose 4 MG; Start 03/06/17 at 18:00 Acetaminophen (Tylenol Liquid) 650 mg Q6H PRN NGT PAIN AND OR ELEVATED TEMP Last administered on 03/09/17 09:46; Admin Dose 650 MG; Start 03/06/17 at 18:30 Ondansetron HCl (Zofran Inj) 4 mg Q6H PRN IV NAUSEA AND/OR VOMITING Last administered on 03/07/17 04:32; Admin Dose 4 MG; Start 03/06/17 at 18:00 Pantoprazole 40 mg 40 mg DAILY@06 IV Last administered on 03/09/17 05:44; Admin Dose 40 MG; Start 03/07/17 at 06:00 Dextrose/Sodium Chloride 1,000 ml @ 100 mls/hr Q10H IV Last administered on 03:52; Admin Dose 100 MLS/HR; Start 03/07/17 at 10:30 Piperacillin Sod/ Tazobactam Sod (Zosyn 3.375gm/ 100 ml (Pmx)) 100 ml @ 200 mls /hr Q6 IVPB ; Start 03/09/17 at 18:00; Status UNYOGI PRICE Mar 09, 2017 16:24
[2017-03-09] MEDS: PIPER-TAZO 3.375 GM IV (PMX) 100 ML IVPB SCH (17:26)
[2017-03-09] MEDS ORDERED: METOPROLOL 5 MG INJ IV PRN (18:00)
[2017-03-09 19:14] LABS: LYMPHOCYTES # 0.9 10^3/ul (0.8-2.9); NEUTROPHIL # 1.1 10^3/ul (1.6-7.5)
[2017-03-10] VITALS (35 sets, daily range): BP systolic 81–116; BP diastolic 41–73; PULSE 66–111; RESP 14–26
[2017-03-10] MEDS: ACETAMINOPHEN 650MG/20.3ML CUP NGT PRN ×3 (00:14→17:44)
[2017-03-10] MEDS: PIPER-TAZO 3.375 GM IV (PMX) 100 ML IVPB SCH ×5 (00:15→23:32)
[2017-03-10 05:31] LABS: ADD SCAN DIFF NO
[2017-03-10] MEDS: DEXTROSE 5%-0.45% NACL 1,000 ML IV SCH ×2 (05:32→17:59)
[2017-03-10] MEDS: PANTOPRAZOLE 40 MG INJ IV SCH (05:32)
[2017-03-10 05:45] LABS: BASOPHILS % 0.2 % (0.0-2.0); EOSINOPHILS # 0.3 10^3/ul (0.0-0.5); EOSINOPHILS % 2.3 % (0.0-7.0); HEMATOCRIT 25.2 % (37.0-47.0); HEMOGLOBIN 8.1 g/dl (12.0-16.0); LYMPHOCYTES # 0.8 10^3/ul (0.8-2.9); LYMPHOCYTES % 7.6 % (15.0-51.0); MEAN CORPUSCULAR HEMOGLOBIN 30.7 pg (29.0-33.0); MEAN CORPUSCULAR HGB CONC 32.1 g/dl (32.0-37.0); MEAN CORPUSCULAR VOLUME 95.5 fl (82.0-101.0); MEAN PLATELET VOLUME 10.5 fl (7.4-10.4); MONOCYTE # 0.4 10^3/ul (0.3-0.9); MONOCYTES % 3.4 % (0.0-11.0); NEUTROPHIL # 9.2 10^3/ul (1.6-7.5); NEUTROPHILS % 85.9 % (39.0-77.0); PLATELET COUNT 190 10^3/UL (140-415); RED BLOOD COUNT 2.64 10^6/ul (4.20-5.40); RED CELL DISTRIBUTION WIDTH 14.6 % (11.5-14.5); WHITE BLOOD COUNT 10.7 10^3/ul (4.8-10.8)
[2017-03-10 06:10] LABS: ALBUMIN 2.5 g/dl (3.3-4.9); ALBUMIN/GLOBULIN RATIO 0.96; BILIRUBIN,INDIRECT 0.1 mg/dl (0-1.1); BILIRUBIN,TOTAL 0.1 mg/dl (0.2-1.3); CALCIUM 7.6 mg/dl (8.4-10.2); CREATININE 0.88 mg/dl (0.44-1.00); POTASSIUM 3.2 mmol/L (3.5-5.1); TOTAL PROTEIN 5.1 g/dl (6.1-8.1)
[2017-03-10] MEDS: morphine 4 MG/ML VIAL IV PRN (06:57)
[2017-03-10] MEDS ORDERED: POTASSIUM CHLORIDE (SR) 20 MEQ TAB PO ONE (08:00)
[2017-03-10 09:23] LABS: HEMATOCRIT 24.5 % (37.0-47.0)
[2017-03-10] MEDS ORDERED: POTASSIUM CHLORIDE 250 ML IVPB ONE (10:00)
[2017-03-10] MEDS: morphine 2 MG INJ IV PRN ×3 (12:43→20:08)
[2017-03-10] MEDS ORDERED: FUROSEMIDE 20 MG INJ IV SCH (14:30)
--- NOTE | 2017-03-10 14:31 | PN ---
Date/Time of Note Date/Time of Note DATE: 03/10/17 TIME: 14:22 Assessment/Plan VTE Prophylaxis VTE Prophylaxis Intervention: SCD's Lines/Catheters IV Catheter Type (from Nrsg): Central Line Central line still needed: Yes (hypotension) Urinary Cath still in place: Yes Reason Cath still needed: terminal illness/intractable pain Assessment/Plan Chief Complaint/Hosp Course Assessment Sepsis, tachycardia and fever with abdominal source, resolved anemia Fever Tachycardia, sinus Abdominal pain Electrolyte derangement Hypoalbuminemia Elevated AST and ALT, resolved Prediabetes Bladder cancer, status post multiple resections Vaginectomy Ureterectomy Cystectomy Ileal conduit urinary diversion Plan -ICU level. Continue zosyn for now. Will repeat h and h today. no signs of bleeding. transfuse as necessary. -BP still low, monitor now that patient is on clears, increasing IV fluids to 100ml/hr. -Blood cultures pending, after 1 day, no growth. -Monitor closely in ICU, pain control as needed -Urology closely following, patient on clears -NG tube to be removed -As needed medications for pain and for tachycardia Yogi Mullins DO Problems: Subjective 24 Hr Interval Summary Free Text/Dictation patient feels ok no new pain in abdomen not dizzy Exam/Review of Systems Vital Signs Vitals Vital Signs Date Time Temp Pulse Resp B/P Pulse Ox O2 Delivery O2 Flow Rate FiO2 03/10/17 14:00 94 20 102/44 99 Nasal Cannula 2.0 03/10/17 11:30 98.4 Intake and Output 03/09/17 03/09/17 03/10/17 15:00 23:00 07:00 Intake Total 950 ml 1000 ml 850 ml Output Total 600 ml 445 ml 260 ml Balance 350 ml 555 ml 590 ml Exam Physical exam General: Patient is laying in bed and answers questions appropriately Mentation: Patient is alert and oriented 4, Head: Normocephalic atraumatic Eyes: EOMI, pupils reactive to light Neck: Supple, nontender, midline Respiratory: Clear to auscultation, short breaths Cardiovascular: Tachycardic, no obvious murmurs Gastrointestinal: Multiple incisions in 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 Neurological: Moves all extremities spontaneously Skin: No new skin lesions Results Result Diagram: 03/10/17 0915 03/10/17 0500 Results 24 hrs Laboratory Tests Test 03/09/17 14:44 7/17/17 14:50 03/10/17 05:00 03/10/17 09:15 Bedside Glucose 144 White Blood Count 2.4 #L 10.7 # Red Blood Count 3.07 L 2.64 L Hemoglobin 9.4 L 8.1 L 8.0 L Hematocrit 29.1 L 25.2 L 24.5 L Mean Corpuscular Volume 94.8 95.5 Mean Corpuscular Hemoglobin 30.6 30.7 Mean Corpuscular Hemoglobin Concent 32.3 32.1 Red Cell Distribution Width 14.6 H 14.6 H Platelet Count 188 190 Mean Platelet Volume 9.9 10.5 H Neutrophils % 47.0 85.9 H Band Neutrophils % 15.0 H Lymphocytes % 36.0 7.6 L Eosinophils % 2.0 2.3 Nucleated Red Blood Cells % 3.0 H 0.0 Neutrophils # 1.1 L 9.2 H Lymphocytes # 0.9 0.8 Eosinophils # 0.0 0.3 Sodium Level 144 144 Potassium Level 3.6 3.2 L Chloride Level 106 107 Carbon Dioxide Level 23 28 Anion Gap 19 #H 12 # Blood Urea Nitrogen 9 10 Creatinine 0.85 0.88 Glucose Level 162 149 Calcium Level 7.8 L 7.6 L Phosphorus Level 3.3 Magnesium Level 2.0 Albumin 2.9 L 2.5 L Monocytes % 3.4 Basophils % 0.2 Monocytes # 0.4 Basophils # 0.0 Nucleated Red Blood Cells # 0.0 Total Bilirubin 0.1 L Direct Bilirubin 0.00 Indirect Bilirubin 0.1 Aspartate Amino Transf (AST/SGOT) 52 H Alanine Aminotransferase (ALT/SGPT) 60 Alkaline Phosphatase 113 # Total Protein 5.1 L Globulin 2.60 Albumin/Globulin Ratio 0.96 Medications Medications Current Medications Morphine Sulfate (morphine) 4 mg Q2H PRN IV PAIN LEVEL 6-10 Last administered on 03/10/17 06:57; Admin Dose 4 MG; Start 03/06/17 at 18:00 Acetaminophen (Tylenol Liquid) 650 mg Q6H PRN NGT PAIN AND OR ELEVATED TEMP Last administered on 03/10/17 07:59; Admin Dose 650 MG; Start 03/06/17 at 18:30 Ondansetron HCl (Zofran Inj) 4 mg Q6H PRN IV NAUSEA AND/OR VOMITING Last administered on 03/07/17 04:32; Admin Dose 4 MG; Start 03/06/17 at 18:00 Pantoprazole 40 mg 40 mg DAILY@06 IV Last administered on 03/10/17 05:32; Admin Dose 40 MG; Start 03/07/17 at 06:00 Dextrose/Sodium Chloride 1,000 ml @ 100 mls/hr Q10H IV Last administered on 05:32; Admin Dose 100 MLS/HR; Start 03/07/17 at 10:30 Piperacillin Sod/ Tazobactam Sod (Zosyn 3.375gm/ 100 ml (Pmx)) 100 ml @ 200 mls /hr Q6 IVPB Last administered on 03/10/17 11:39; Admin Dose 200 MLS/HR; Start 03/09/17 at 18:00 Metoprolol Tartrate (Lopressor) 5 mg Q6H PRN IV HR >120; Start 03/09/17 at 18: 00 Morphine Sulfate (morphine) 2 mg Q2H PRN IV PAIN Last administered on 12:43; Admin Dose 2 MG; Start 03/10/17 at 11:30 YOGI MULLINS Mar 10, 2017 14:30
--- NOTE | 2017-03-10 17:35 | RADRPT ---
Vent Rate: 171 bpm RR Interval: 0 msec NC Interval: 132 msec QRS Duration: 60 msec QT Interval: 208 msec QTC Interval: 350 msec P-R-T [place]: 57 - 34 - 112 degrees SVT Low voltage QRS Cannot rule out Anterior infarct , age undetermined Abnormal ECG Electronically Signed By: Tyler Celestin [id number]
[2017-03-10 19:13] LABS: ADD UMIC YES; UR ASCORBIC ACID NEGATIVE (NEGATIVE); UR BACTERIA MODERATE /HPF (NONE SEEN); UR BILIRUBIN (Dip) NEGATIVE (NEGATIVE); UR BLOOD (Dip) 3+ mg/dL (NEGATIVE); UR CLARITY CLOUDY (CLEAR); UR COLOR YELLOW (YELLOW); UR GLUCOSE (Dip) NEGATIVE (NEGATIVE); UR KETONES (Dip) NEGATIVE (NEGATIVE); UR LEUKOCYTE ESTERASE (Dip) 3+ Leu/ul (NEGATIVE); UR MUCUS FEW /HPF (NONE SEEN); UR NITRITE (Dip) NEGATIVE (NEGATIVE); UR NONSQUAMOUS EPITHELIAL CELL 1 /HPF (NONE SEEN); UR RBC > 182 /HPF (0-5); UR SPECIFIC GRAVITY (Dip) 1.014 (1.003-1.030); UR TOTAL PROTEIN (Dip) 2+ mg/dl (NEGATIVE); UR UROBILINOGEN (Dip) NEGATIVE (NEGATIVE); UR WBC CLUMPS FEW /HPF (NONE SEEN)
[2017-03-11] VITALS (13 sets, daily range): BP systolic 94–124; BP diastolic 47–73; PULSE 59–85; RESP 12–22
[2017-03-11] MEDS ORDERED: SOD CHLORIDE 0.9% 500 ML IV ONE (00:30)
[2017-03-11] MEDS: ACETAMINOPHEN 650MG/20.3ML CUP NGT PRN ×3 (01:39→22:59)
[2017-03-11] MEDS: DEXTROSE 5%-0.45% NACL 1,000 ML IV SCH (04:18)
[2017-03-11 05:25] LABS: ADD SCAN DIFF NO
[2017-03-11 05:31] LABS: BASOPHILS % 0.1 % (0.0-2.0); EOSINOPHILS # 0.2 10^3/ul (0.0-0.5); EOSINOPHILS % 1.9 % (0.0-7.0); HEMATOCRIT 24.5 % (37.0-47.0); LYMPHOCYTES # 0.9 10^3/ul (0.8-2.9); LYMPHOCYTES % 10.3 % (15.0-51.0); MEAN CORPUSCULAR HEMOGLOBIN 30.5 pg (29.0-33.0); MEAN CORPUSCULAR HGB CONC 32.7 g/dl (32.0-37.0); MEAN CORPUSCULAR VOLUME 93.5 fl (82.0-101.0); MEAN PLATELET VOLUME 10.2 fl (7.4-10.4); MONOCYTE # 0.4 10^3/ul (0.3-0.9); MONOCYTES % 4.3 % (0.0-11.0); NEUTROPHIL # 6.9 10^3/ul (1.6-7.5); NEUTROPHILS % 82.3 % (39.0-77.0); PLATELET COUNT 176 10^3/UL (140-415); RED BLOOD COUNT 2.62 10^6/ul (4.20-5.40); RED CELL DISTRIBUTION WIDTH 14.6 % (11.5-14.5); WHITE BLOOD COUNT 8.4 10^3/ul (4.8-10.8)
[2017-03-11 05:56] LABS: CALCIUM 7.2 mg/dl (8.4-10.2); CREATININE 0.73 mg/dl (0.44-1.00); MAGNESIUM 2.2 mg/dl (1.7-2.5); PHOSPHORUS 2.8 mg/dl (2.5-4.9)
[2017-03-11] MEDS: PIPER-TAZO 3.375 GM IV (PMX) 100 ML IVPB SCH ×3 (06:15→18:38)
[2017-03-11] MEDS: PANTOPRAZOLE 40 MG INJ IV SCH (06:15)
[2017-03-11 07:09] LABS: POTASSIUM 2.9 mmol/L (3.5-5.1)
[2017-03-11] MEDS: morphine 2 MG INJ IV PRN ×2 (08:00→21:48)
--- NOTE | 2017-03-11 08:05 | PN ---
Date/Time of Note Date/Time of Note DATE: 03/11/17 TIME: 07:58 Assessment/Plan VTE Prophylaxis VTE Prophylaxis Intervention: ambulation, SCD's Lines/Catheters IV Catheter Type (from Nrsg): Central Line Central line still needed: Yes Urinary Cath still in place: No Assessment/Plan Chief Complaint/Hosp Course Cystectomy/urethrectomy/anterior vaginectomy, BPLND, Ileal conduit urinary diversion Hypernatrermia:improved POST OP pain elevated HR Problems: Assessment/Plan Assessment 1. intermittent fevers: improving 2. Low hgb stable: pt had a possible transufsion reaction yest 3. Low U/O last night: improved with fluid bolus 4. hypokalemia 5. increased BISHNU output r/o urine leak Plan: 1.cont Zosyn 2. No transfusion for now 3. Follow labs 4. KCL replacement already ordered 5. Send BISHNU for creatinine 6. Cont with all tubes 7. Clear liquid diet 8. OK transfer to med surg Subjective 24 Hr Interval Summary Free Text/Dictation No nausea, drank some fluids did not ambulate Pain is decreased No BM No flatus Exam/Review of Systems Vital Signs Vitals Vital Signs Date Time Temp Pulse Resp B/P Pulse Ox O2 Delivery O2 Flow Rate FiO2 03/11/17 06:00 62 14 101/47 100 Nasal Cannula 2.0 03/11/17 04:00 97.8 Intake and Output 03/10/17 03/10/17 03/11/17 15:00 23:00 07:00 Intake Total 850 ml 600 ml 950 ml Output Total 615 ml 430 ml 490 ml Balance 235 ml 170 ml 460 ml Exam Constitutional: alert, oriented Gastrointestinal: distended (Mild distention), other (Wound C/D/I), soft Genitourinary - Female: other (Stoma: pink, no edema, tubes intact; No CVAT) Results Result Diagram: 03/11/175 03/11/175 Results 24 hrs Laboratory Tests Test 03/10/17 09:15 03/10/17 18:00 03/11/17 04:45 03/11/17 05:16 Hemoglobin 8.0 L 8.0 L Hematocrit 24.5 L 24.5 L Urine Color YELLOW Urine Clarity CLOUDY A Urine pH 7.0 Urine Specific [place] 1.014 Urine Ketones NEGATIVE Urine Nitrite NEGATIVE Urine Bilirubin NEGATIVE Urine Urobilinogen NEGATIVE Urine Leukocyte Esterase 3+ H Urine Microscopic RBC > 182 H Urine Microscopic WBC > 182 H Urine Bacteria MODERATE Urine Mucus FEW A Urine Hemoglobin 3+ H Urine Glucose NEGATIVE Urine Total Protein 2+ H White Blood Count 8.4 # Red Blood Count 2.62 L Mean Corpuscular Volume 93.5 Mean Corpuscular Hemoglobin 30.5 Mean Corpuscular Hemoglobin Concent 32.7 Red Cell Distribution Width 14.6 H Platelet Count 176 Mean Platelet Volume 10.2 Neutrophils % 82.3 H Lymphocytes % 10.3 L Monocytes % 4.3 Eosinophils % 1.9 Basophils % 0.1 Nucleated Red Blood Cells % 0.0 Neutrophils # 6.9 Lymphocytes # 0.9 Monocytes # 0.4 Eosinophils # 0.2 Basophils # 0.0 Nucleated Red Blood Cells # 0.0 Sodium Level 143 Potassium Level 2.9 *L Chloride Level 107 Carbon Dioxide Level 26 Anion Gap 13 Blood Urea Nitrogen 8 Creatinine 0.73 Glucose Level 170 Calcium Level 7.2 L Phosphorus Level 2.8 Magnesium Level 2.2 Lab Scanned Report BLOOD TRANSFUSION Medications Medications Current Medications Morphine Sulfate (morphine) 4 mg Q2H PRN IV PAIN LEVEL 6-10 Last administered on 03/10/17 06:57; Admin Dose 4 MG; Start 03/06/17 at 18:00 Acetaminophen (Tylenol Liquid) 650 mg Q6H PRN NGT PAIN AND OR ELEVATED TEMP Last administered on 03/11/17 01:39; Admin Dose 650 MG; Start 03/06/17 at 18:30 Ondansetron HCl (Zofran Inj) 4 mg Q6H PRN IV NAUSEA AND/OR VOMITING Last administered on 03/07/17 04:32; Admin Dose 4 MG; Start 03/06/17 at 18:00 Pantoprazole 40 mg 40 mg DAILY@06 IV Last administered on 03/11/17 06:15; Admin Dose 40 MG; Start 03/07/17 at 06:00 Dextrose/Sodium Chloride 1,000 ml @ 125 mls/hr Q8H IV Last administered on 04:18; Admin Dose 125 MLS/HR; Start 03/07/17 at 10:30 Piperacillin Sod/ Tazobactam Sod (Zosyn 3.375gm/ 100 ml (Pmx)) 100 ml @ 200 mls /hr Q6 IVPB Last administered on 03/11/17 06:15; Admin Dose 200 MLS/HR; Start 03/09/17 at 18:00 Metoprolol Tartrate (Lopressor) 5 mg Q6H PRN IV HR >120; Start 03/09/17 at 18: 00 Morphine Sulfate 2 mg 2 mg Q2H PRN IV PAIN Last administered on 03/10/17 20:08 ; Admin Dose 2 MG; Start 03/10/17 at 11:30 Potassium Chloride/Sodium Chloride (KCl/NS) 165 ml @ 55 mls/hr Q3 IVPB ; Start 03/11/17 at 09:00; Stop 03/11/17 at 14:59; Status UNHAMIDA PENNINGTON Mar 11, 2017 08:04
[2017-03-11] MEDS ORDERED: D5W-0.45 NACL + KCL 40 MEQ 1,000 ML IV SCH (08:30)
[2017-03-11] MEDS: POTASSIUM CHLORIDE 30 MEQ in SOD CHLORIDE 0.9% 150 ML IVPB SCH ×2 (08:43→13:07)
[2017-03-11 10:33] LABS: PRETRANSFUSION BILIRUBIN 0.1 mg/dl
[2017-03-11 10:34] LABS: POST-TRANSFUSION BILIRUBIN 0.2 mg/dl
[2017-03-11] MEDS: morphine 4 MG/ML VIAL IV PRN (11:54)
--- NOTE | 2017-03-11 13:57 | PN ---
Date/Time of Note Date/Time of Note DATE: 03/11/17 TIME: 13:51 Assessment/Plan VTE Prophylaxis VTE Prophylaxis Intervention: SCD's Lines/Catheters IV Catheter Type (from Nrs): Central Line Central line still needed: Yes Urinary Cath still in place: No Assessment/Plan Chief Complaint/Hosp Course Assessment Sepsis, tachycardia and fever with abdominal source, resolved anemia Fever Tachycardia, sinus Abdominal pain Electrolyte derangement Hypoalbuminemia Elevated AST and ALT, resolved Prediabetes Bladder cancer, status post multiple resections Vaginectomy Ureterectomy Cystectomy Ileal conduit urinary diversion Plan -downgraded. Continue zosyn for now. repeat h and h stable. -BP improved. -fever during transfusion yesterday, however, lab confirmed no reaction. may consider additional transfusion per primary. -Blood cultures pending, no growth so far. -Urology closely following, patient on clears -As needed medications for pain and for tachycardia Yogi Mullins DO Problems: Subjective 24 Hr Interval Summary Free Text/Dictation no new complaints Exam/Review of Systems Vital Signs Vitals Vital Signs Date Time Temp Pulse Resp B/P Pulse Ox O2 Delivery O2 Flow Rate FiO2 03/11/17 10:33 98.8 81 18 114/59 98 03/11/17 09:51 Room Air 03/11/17 08:00 2.0 Intake and Output 03/10/17 03/10/17 03/11/17 15:00 23:00 07:00 Intake Total 850 ml 600 ml 950 ml Output Total 615 ml 430 ml 525 ml Balance 235 ml 170 ml 425 ml Exam Physical exam General: Patient is laying in bed and answers questions appropriately Mentation: Patient is alert and oriented 4, Head: Normocephalic atraumatic Eyes: EOMI, pupils reactive to light Neck: Supple, nontender, midline Respiratory: Clear to auscultation, short breaths Cardiovascular: Tachycardic, no obvious murmurs Gastrointestinal: 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 Neurological: Moves all extremities spontaneously Skin: No new skin lesions Results Result Diagram: 03/11/17 0445 03/11/17 0445 Results 24 hrs Laboratory Tests Test 03/10/17 18:00 03/11/17 04:45 03/11/17 05:16 03/11/17 08:30 Urine Color YELLOW Urine Clarity CLOUDY A Urine pH 7.0 Urine Specific [place] 1.014 Urine Ketones NEGATIVE Urine Nitrite NEGATIVE Urine Bilirubin NEGATIVE Urine Urobilinogen NEGATIVE Urine Leukocyte Esterase 3+ H Urine Microscopic RBC > 182 H Urine Microscopic WBC > 182 H Urine Bacteria MODERATE Urine Mucus FEW A Urine Hemoglobin 3+ H Urine Glucose NEGATIVE Urine Total Protein 2+ H White Blood Count 8.4 # Red Blood Count 2.62 L Hemoglobin 8.0 L Hematocrit 24.5 L Mean Corpuscular Volume 93.5 Mean Corpuscular Hemoglobin 30.5 Mean Corpuscular Hemoglobin Concent 32.7 Red Cell Distribution Width 14.6 H Platelet Count 176 Mean Platelet Volume 10.2 Neutrophils % 82.3 H Lymphocytes % 10.3 L Monocytes % 4.3 Eosinophils % 1.9 Basophils % 0.1 Nucleated Red Blood Cells % 0.0 Neutrophils # 6.9 Lymphocytes # 0.9 Monocytes # 0.4 Eosinophils # 0.2 Basophils # 0.0 Nucleated Red Blood Cells # 0.0 Sodium Level 143 Potassium Level 2.9 *L Chloride Level 107 Carbon Dioxide Level 26 Anion Gap 13 Blood Urea Nitrogen 8 Creatinine 0.73 Glucose Level 170 Calcium Level 7.2 L Phosphorus Level 2.8 Magnesium Level 2.2 Lab Scanned Report BLOOD TRANSFUSION Urine Random Creatinine 70.61 Medications Medications Current Medications Morphine Sulfate (morphine) 4 mg Q2H PRN IV PAIN LEVEL 6-10 Last administered on 03/11/17 11:54; Admin Dose 4 MG; Start 03/06/17 at 18:00 Acetaminophen (Tylenol Liquid) 650 mg Q6H PRN NGT PAIN AND OR ELEVATED TEMP Last administered on 03/11/17 01:39; Admin Dose 650 MG; Start 03/06/17 at 18:30 Ondansetron HCl (Zofran Inj) 4 mg Q6H PRN IV NAUSEA AND/OR VOMITING Last administered on 03/07/17 04:32; Admin Dose 4 MG; Start 03/06/17 at 18:00 Pantoprazole 40 mg 40 mg DAILY@06 IV Last administered on 03/11/17 06:15; Admin Dose 40 MG; Start 03/07/17 at 06:00 Piperacillin Sod/ Tazobactam Sod (Zosyn 3.375gm/ 100 ml (Pmx)) 100 ml @ 200 mls /hr Q6 IVPB Last administered on 03/11/17 13:07; Admin Dose 200 MLS/HR; Start 03/09/17 at 18:00 Metoprolol Tartrate (Lopressor) 5 mg Q6H PRN IV HR >120; Start 03/09/17 at 18: 00 Morphine Sulfate 2 mg 2 mg Q2H PRN IV PAIN Last administered on 03/11/17 08:00 ; Admin Dose 2 MG; Start 03/10/17 at 11:30 Potassium Chloride 30 meq/ Sodium Chloride 165 ml @ 55 mls/hr Q3H IVPB Last administered on 03/11/17 13:07; Admin Dose 55 MLS/HR; Start 03/11/17 at 09:30; Stop 03/11/17 at 15:29 Potassium Chloride/Dextrose/ Sod Cl (D5-1/2ns + KCl 40 Meq) 1,000 ml @ 125 mls/ hr Q8H IV Last administered on 03/11/17 09:33; Admin Dose 125 MLS/HR; Start at 08:30 YOGI MULLINS Mar 11, 2017 13:56
[2017-03-11] MEDS ORDERED: D5W-0.45 NACL + KCL 40 MEQ 1,000 ML IV ONE (14:00)
[2017-03-12] MEDS: PIPER-TAZO 3.375 GM IV (PMX) 100 ML IVPB SCH ×4 (00:14→18:00)
[2017-03-12] MEDS ORDERED: hydrALAzine 20 MG INJ IV PRN (04:00)
[2017-03-12 05:25] LABS: ADD SCAN DIFF NO
[2017-03-12 05:29] LABS: BASOPHILS % 0.3 % (0.0-2.0); EOSINOPHILS # 0.2 10^3/ul (0.0-0.5); EOSINOPHILS % 2.1 % (0.0-7.0); HEMATOCRIT 25.4 % (37.0-47.0); HEMOGLOBIN 8.3 g/dl (12.0-16.0); LYMPHOCYTES % 13.7 % (15.0-51.0); MEAN CORPUSCULAR HGB CONC 32.7 g/dl (32.0-37.0); MEAN CORPUSCULAR VOLUME 91.7 fl (82.0-101.0); MEAN PLATELET VOLUME 10.7 fl (7.4-10.4); MONOCYTE # 0.4 10^3/ul (0.3-0.9); NEUTROPHIL # 5.9 10^3/ul (1.6-7.5); NEUTROPHILS % 77.4 % (39.0-77.0); PLATELET COUNT 223 10^3/UL (140-415); RED BLOOD COUNT 2.77 10^6/ul (4.20-5.40); RED CELL DISTRIBUTION WIDTH 14.5 % (11.5-14.5); WHITE BLOOD COUNT 7.6 10^3/ul (4.8-10.8)
[2017-03-12] MEDS: ACETAMINOPHEN 650MG/20.3ML CUP NGT PRN (05:38)
[2017-03-12] MEDS: PANTOPRAZOLE 40 MG INJ IV SCH (05:38)
[2017-03-12 05:53] LABS: CALCIUM 8.1 mg/dl (8.4-10.2); CREATININE 0.62 mg/dl (0.44-1.00); MAGNESIUM 2.2 mg/dl (1.7-2.5); POTASSIUM 3.3 mmol/L (3.5-5.1)
[2017-03-12 07:00] VITALS: BP 132/60; RESP 20
[2017-03-12] MEDS ORDERED: POTASSIUM CHLORIDE 20 MEQ POWDER FOR ORAL SOLN PO ONE (10:00)
--- NOTE | 2017-03-12 10:08 | OPR ---
DATE OF OPERATION: 03/06/2017 SURGEON: Rony Ghotra MD LOCKS TENDER: Jesus Mazariegos MD PREOPERATIVE DIAGNOSIS: Urethral cancer. POSTOPERATIVE DIAGNOSES: 1. Urethral cancer. 2. Urethrovaginal fistula. 3. 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 4. Intraperitoneal adhesions secondary to previous abdominal surgery. 5. Retroperitoneal fibrosis. PROCEDURES PERFORMED: 1. Radical cystectomy. 2. Anterior vaginectomy. 3. Urethrectomy. 4. Bilateral ureterolysis. 5. Extensive lysis of intraabdominal and pelvic adhesions. 6. Small bowel resection. 7. Ileal conduit urinary diversion. 8. Placement of bilateral ureteral stents through open ureterotomies. INDICATIONS FOR PROCEDURES: The patient has a history of muscle- invasive urethral cancer, high grade. The patient's cancer appears to be within a urethral diverticulum. The tumor is very close to the bladder neck. The patient has previously undergone pelvic radiation without success in terms of resolution of her cancer. She has been counseled in regard to her various options. She has elected to undergo the above-said procedure. The risks and benefits of the procedure have been discussed with the patient. She understands that risks include but not limited to infection, bleeding, damage to adjacent structures, heart problems, lung problems, possibility of need for further surgery, DVT, PE, LA, CVA, nonresolution of symptoms, recurrent symptoms, need for further treatment, need for further surgeries, recurrence of cancer, pelvic and abdominal abscess, bowel obstruction, bowel injury, liver injury, vascular injury, need for transfusion, need for further operations. All of her questions have been answered. No guarantee was given. She would like to proceed. FINDINGS: The patient's abdomen contained severe intraperitoneal adhesions secondary to previous intraabdominal surgery. Furthermore, due to the fact that the patient had undergone pelvic radiation, the bladder was extremely adherent to the pelvic sidewall. Furthermore, the pelvic lymph nodes were matted against the pelvic vessels, especially on the left side of the pelvis. Retroperitoneal fibrosis was also encountered. Intraoperative frozen sections of the ureters were negative. The bladder, urethra, and anterior vagina were removed en bloc. Ileal conduit urinary diversion was performed. PROCEDURE IN DETAIL: The patient was brought to the operating room with laryngeal oroendotracheal tube anesthesia. She was placed in the lithotomy position. The abdomen, perineum, and genitalia were prepped and draped in the usual sterile fashion. The vagina had also been prepped sterilely. A Sifuentes catheter was placed for the patient. Posterior weighted vaginal speculum was placed into the vagina. Next, the anterior vaginal wall was identified, and the fistula extending from the area of the tumor into the vagina was identified. The vagina was then scored along its anterior vaginal wall. This was then dissected down into the perivaginal tissue. Deeper dissection was then carried into the pelvic muscles. The area had been injected with lidocaine with epinephrine for decreased bleeding. Next, the incision was made around the urethra below the clitoris. The urethra was then cored circumferentially all the way into the pelvis. This was done all the way to below the arch of the pubis. The urethra in this fashion was freed off the perineum. Dissection was carried into the pelvis. On the left side, the structures including the urethra and the vaginal wall were very adherent to the pelvic sidewall. Once enough immobilization of anterior vaginal wall as well as urethra had been accomplished, attention was paid to the abdominal cavity. A midline abdominal incision was made from above the umbilicus all the way down to the pubis. The linea alba was opened. As dissection was carried further toward the pelvis, the fascia was extremely difficult to open, most likely due to radiation. The fascia was very hard, scarred and fibrosed. Peritoneal cavity was then entered. The Bookwalter retractor was placed. The abdominal yousif were retracted. At this point, bowel was placed under traction, taking care not to injure or place the aorta, IVC, or the bowel on tension. The peritoneum over the ureters was identified. On the right side, the peritoneum along the common iliac artery was opened. Dissection was then carried along the ureter toward the pelvis. The ureter was dissected from the surrounding structures. There was retroperitoneal fibrotic process, which was opened. Care was taken to leave an ample amount of tissue around the ureter and dissection was carried down to the bladder. The ureter was dissected all the way to the area of the intramural portion. Superior vesical artery was clipped and divided. Next, the ureter was transected. The distal ureter was sent to Pathology for frozen section, which showed no evidence of cancer. Attention was paid to identifying the left ureter. In this area, there was increased adhesions. The peritoneum was opened. The ureter was identified. The ureter was then dissected toward the bladder. Severe retroperitoneal fibrotic process was encountered. The fibrotic process was opened. As this was opened, the ureter was freed down to the bladder. The ureter was clipped and divided. Ample amount of tissue around the ureter was also preserved for blood supply. A portion of the distal ureter was also sent to Pathology, which showed no evidence of carcinoma. Attention was then paid to the dissection of the bladder. The posterior cul-de-sac was opened. An EEA sizer was placed into the vagina. The posterior vaginal wall was then dissected off the anterior rectum. Again on the left side, there appeared to be more adhesions. The rectum was carefully dissected off the posterior vaginal wall, taking care not to injure the rectum. Next, the pedicles to the bladder were identified. The peritoneum along the wings of the bladder laterally and anteriorly were incised all the way to the umbilicus. The urachus was dissected toward the bladder. The lateral pedicles to the bladder were identified coming off of the internal iliac arteries bilaterally. These were pedicilized and then divided using endovascular stapler. Dissection was then carried deeper. The posterior pedicles to the bladder were also identified. These were swept off the rectum. Next, they were divided using endovascular stapler. Individual vessels were also identified. These were also clipped using Weck clips and divided. The space of Retzius was then entered. The bladder was intraperitonealized from its anterior aspect. On the left side, the bladder was severely adherent to the pubic arch and pelvic sidewall. In this area, dissection was carried from known areas to unknown areas, to chisel through the fibrotic process between the bladder and the anterior abdominal wall. Extreme care was taken not to open the bladder. The bladder was kept intact. The bladder was then dissected off the arch of the pubic bone. Again, bladder was very adherent to the arch of the pubic bone and abdominal wall. However, it was possible to lift the bladder off these structures without injury to the detrusor muscle and also to obtain a good margin. Once the bladder had been completely freed, the endopelvic fascia was opened bilaterally. On the right side, the endopelvic fascia was opened more easily. On the left side, due to the fibrosis, it was difficult to open. However, it was accomplished. The endopelvic fascia was opened. Next, dissection was carried toward the dorsal vein complex area. The dorsal vein was suture ligated using 0-Vicryl [id number] suture. Next, the attachment between the dorsal vein and urethra was divided. The urethra was then further dissected off deep into the pelvis. At this point, one hand was placed into the vagina while the other palpated the urethra. Further attachments between the vaginal and introital approach versus intraabdominal approach were identified. These adhesions were taken down. On the left side, the anterior vaginal wall as well as the areas of the urethra were very adherent to the pelvic sidewall. These were also dissected in a wide-resection fashion in order to obtain excellent margins. As this was done, the anterior vaginal wall was identified. The lateral aspects of the vaginal wall were opened. The anterior vaginal wall was then dissected off the rest of the vagina and kept with the posterior bladder wall. The fistula was identified. It was still intact against the urethra and bladder neck into the vagina. These structures were all kept together. Residual lateral attachments of the bladder were also taken down until the bladder, urethra, and anterior vaginal wall were all removed en bloc. This was sent to Pathology. The pelvis was carefully examined. Some bleeding was identified along the dorsal vein area. This bleeding was controlled with suture ligature using 0-Vicryl sutures. Next, attention was paid to closure of the vagina. The vagina was closed longitudinally by reapproximating the lateral yousif against each other with number 1 Vicryl suture. Once this was done intraabdominally, the more distal aspects of the vagina were tubularized and closed from the introitus. This effectively closed the vagina completely. We tubularized it in order to allow functional length to the vagina. Attention was then paid to the bilateral pelvic lymphadenectomy. Initially, the pelvic lymph nodes were dissected on the right side. The common iliac artery was identified. The lymph nodes between the common iliac artery and vein were identified. These were dissected off the vessels. Next, dissection was carried more medially. The dissection was carried all the way to the bifurcation of the common iliac. These were removed and sent to Pathology as right common iliac lymph nodes. The lymphatic channels were clipped and divided. Next, dissection was carried along the external iliac vein and arteries. The lymph nodes were also lifted and dissected off these areas. The lymphatic channels were clipped and divided. The lymph nodes were removed and sent to Pathology as right external iliac lymph nodes. The obturator lymph nodes were also swept off the external iliac vein. Dissection was carried from the pubic bone toward the pelvic sidewall. Dissection was carried down onto obturator nerve. The obturator nerve was identified and preserved. The lymph nodes were swept off this area. Dissection was carried all the way to the bifurcation of the iliac vessels, at which point, they were clipped and divided, and sent to Pathology as right obturator lymph nodes. Furthermore, the lymph nodes along the internal iliac artery were swept off the artery and vein. These were also clipped and divided, and sent to Pathology as internal iliac lymph nodes. The presacral lymph nodes along the sacrum were also identified. These were carefully dissected. The common iliac vein was identified and preserved. The lymph nodes were again pedicilized, clipped, and divided, then sent to Pathology. Attention was then paid to the lymphadenectomy on the left side. The lymph nodes on the left side were very matted and scarred. They were essentially cemented against the pelvic vessels. This made it much more difficult to dissect. However, it was possible to identify the lymph nodes. These were swept off the common iliac artery, external iliac vessels, as well as the internal iliac vessels. These were sent separately to Pathology. The were clipped and divided. The obturator lymph nodes were also dissected off the external iliac vein. Dissection was carried toward the pelvic sidewall down to the obturator nerve. They were swept off this area, clipped, divided, and sent to Pathology. Of note, the more distal lymph nodes, especially the external iliac lymph nodes and the obturator lymph nodes were very scarred and matted against the pelvic vessels and the pelvic sidewall, however, it was possible to remove them and sent to Pathology. Bilateral obturator nerves were preserved. Attention was then paid to the ureters. The left hemicolon along the white line of Toldt was incised. Multiple intraperitoneal adhesions were encountered in this area. These adhesions obstructed the view to the colon. Therefore, intraloop adhesions were taken down. As these were done, it was possible to further mobilize the colon. Furthermore, during the ureteral dissection towards the pelvis, there were multiple loops of bowel stuck to the pelvis, due to the fact that the patient had previous hysterectomy. These adhesional bands had also been taken down in order to mobilize the bowel out of the pelvis. Further up in the abdomen, intraloop adhesions as well as adhesions between the omentum, small bowel, and large bowel were all taken down. Extreme care was taken not to injure the colon or small bowel. The large bowel was mobilized medially all the way toward the lower pole of the kidney. At this point, the ureter was dissected off the large bowel with excellent amount of blood supply and tissue around it, in order to maintain its blood supply. Next, the left ureter was passed underneath the colon mesentery but anterior to the aorta, from the left side to the right side of the abdominal cavity into the right retroperitoneum. This was done at a level higher than the inferior mesenteric artery. Similar dissection was then carried along the right hemicolon. The cecum was dissected off. The appendix was not visible, most likely due to removal at the time of patient's hysterectomy at a previous surgery. The cecum and the right hemicolon were dissected toward the liver. This allowed further mobilization of the ureter with ample amount of right ureteral and periureteral tissues. Attention was then paid to formation of the ileal conduit. A 20- cm portion of terminal ileum was identified. This was marked. The distal portion of the marking was 20 cm proximal to the ileocecal valve. The bowel resection of this 20-cm piece of terminal ileum was performed using the JEREMIAH-60 stapler. Next, the mesentery of this portion of the terminal ileum was from the rest of the bowel. The mesentery was dissected with the vessels being sealed using the LigaSure device. The LigaSure was placed in such a fashion as to provide ample blood supply to the conduit portion as well as the rest of the bowel. Once the 20 cm of terminal ileum had been from the rest of the bowel, attention was paid to the bowel re-anastomosis. The [id number] bowel anastomosis was performed using the JEREMIAH stapler. A TA stapler was also used for the T-portion of the [id number] anastomosis. The staple line was then further secured using 3-0 silk interrupted sutures by burying the staple line underneath the suture line. The other end of the staple line was further secured also using 3-0 silk sutures. The mesenteric trap was then closed with interrupted 3-0 Vicryl sutures, taking care not to injure the mesenteric vessels. The attention was then paid to the 20 cm of terminal ileum which would be used for the conduits. The 20-cm of terminal ileum which was used for the conduit was identified. In order to gain further length on the mesentery, about 4 cm of the terminal portion of this conduit were identified. The mesentery was then divided off its junction to the bowel. Then 4 cm of bowel were completely excised. The rest of the bowel which was about 16 to 17 cm was kept intact with excellent blood supply. This effectively allowed better mobilization of the bowel to be brought out as its terminal location for the stoma. At this point, the staple line along the proximal portion of the conduit was excluded using 2-0 Vicryl running Lembert sutures. Next, two enterotomies were made along the proximal portion of the conduit. The ureters were brought onto these enterotomies. Each ureter was then opened along its antimesenteric aspect. The ureters were spatulated. Each ureter was then anastomosed to each enterotomy using 3-0 PDS running suture. Once the sutures had been run chcf, a Glidewire was passed through the ureters. A 28-cm 7-Omani stent was then placed up into the kidneys. The proximal portions of the stent were placed into the conduit. The string on the stents was brought out of the stomal portion or the terminal portion of the conduit. The rest of the portions of the ureter were anastomosed to the conduit. The excess distal portions of the ureter were sent to Pathology as right and left distal ureters for permanent section. Excellent watertight closure had been obtained for each ureteral ileal anastomosis. Each stent was also secured to the conduit using a 4-0 chromic suture. Of note, the patient's stoma site had been premarked at a location which would be most ideal. This marking, due to the fact that the patient had multiple folds of adiposity and skin, had to be placed slightly above the umbilicus. Therefore, the conduit had been placed in such a fashion as to allow it to reach the upper abdomen with the rest of the bowel, placed in such a fashion as to not pull or decrease the blood supply to the conduit. The area of stoma was then scored circumferentially. Dissection was carried all the way down to anterior rectus fascia. The anterior rectus fascia was opened in a cruciate fashion. The muscles were opened. The posterior fascia was opened enough to allow easy passage of the terminal portion of the conduit. At this point, the terminal portion of the conduit which had already been opened, was brought from the abdominal cavity onto the stoma skin. This was done in such a way as to not twist or strangulate the blood supply to the conduit. Next, the inner mucosa was telescoped out in a kletsel dehe wintun fashion. The 0-Vicryl sutures that had been placed on the anterior cruciate incisions of the rectus fascia were placed through the wall of the conduit in order to maintain it in a good length above the skin level. Once the stoma had been folded onto itself in order to telescope the mucosa out, the everted mucosa was secured against the wall of the conduit using 3-0 Vicryl interrupted sutures. Next, the edges of the stoma were matured against the abdominal skin using 3-0 Vicryl interrupted sutures. These were placed through the skin, wall of the conduit, and then onto the inverted mucosa. This effectively allowed two inches of protrusion off the skin level as a kletsel dehe wintun stoma. At this point, a 19-Omani Devin drain was placed into the pelvis. The abdomen was carefully examined. There were no further laparotomy pads in the abdominal cavity. The abdominal cavity was copiously irrigated. The omentum was placed back over the bowel. Next, the fascia was closed using a running number 1 looped PDS suture. The subcutaneous layer was copiously irrigated with saline. Next, the skin was closed with maximilian. Prior to closure of the abdomen, an 18-Omani red Rubio catheter had also been placed through the stoma into the conduit and secured against the skin using a 3-0 chromic suture. The strings to the stents as well as the red Rubio catheter were all placed into a urostomy bag. The wafer was placed onto the skin. The bag was attached to the wafer. There was excellent clear urine draining into the conduit and out of the stoma into the stoma bag and into the urinary drainage bag. The attention was placed back to the perineal area. The vagina was reexamined. A Xeroform packing was placed into the vagina. The incision was reexamined and appeared to be closed. There was no bleeding. At this point, the patient was placed back in the supine position. She was then awakened, extubated, and taken to the recovery room in stable condition. POSTPROCEDURE CONDITION: Stable. COMPLICATIONS: None. ESTIMATED BLOOD LOSS: 800 mL. BLOOD ADMINISTERED: Two units of packed red cells. Dictated By: Rony Ghotra MD /[email or web address] /Document#: [id number]
--- NOTE | 2017-03-12 10:56 | CONS ---
DATE OF ADMISSION: 03/06/2017 DATE OF CONSULTATION: UROLOGY FOLLOWUP: Alexandra Johnson is status post radical cystectomy. Overall she is doing well today in the intensive care unit. She is tolerating clear liquids and has bowel sounds. PHYSICAL EXAMINATION: VITAL SIGNS: Systolic blood pressure is 90s/50s, heart rate 70s, respiration rate 16. Urine output 30 mL/hour. LUNGS: Good breath sounds bilaterally with decreased breath sounds at the base. HEART: Regular rate and rhythm. ABDOMEN: Softly distended with hypoactive bowel sounds. Wound clean, dry, and intact. Blaise-Menendez drain with serosanguineous drainage. The urostomy is pink, drain intact. Urine is concentrated yellow. EXTREMITIES: No calf tenderness. LABORATORY DATA: Hemoglobin 8.0. Creatinine 0.88. Potassium 3.2. IMPRESSION: Status post radical cystectomy, doing well except for values as above. Of note, she has received potassium replacement. PLAN: In light of blood pressure, urine output, and hemoglobin, we will transfuse 2 units packed red blood cells (PRBCs), 10 mg Lasix after each unit. Continue IV hydration and clear liquids. Dictated By: Romulo Georges MD /[email or web address] /Document#: [id number]
[2017-03-12] MEDS: morphine 2 MG INJ IV PRN ×2 (12:17→15:51)
--- NOTE | 2017-03-12 17:38 | PN ---
Date/Time of Note Date/Time of Note DATE: 03/12/17 TIME: 17:34 Assessment/Plan VTE Prophylaxis VTE Prophylaxis Intervention: SCD's Lines/Catheters IV Catheter Type (from Nrs): Central Line Central line still needed: Yes Urinary Cath still in place: No (UROSTOMY ) Assessment/Plan Chief Complaint/Hosp Course Assessment Sepsis, tachycardia and fever with abdominal source, resolved anemia Fever Tachycardia, sinus Abdominal pain Electrolyte derangement Hypoalbuminemia Elevated AST and ALT, resolved Prediabetes Bladder cancer, status post multiple resections Vaginectomy Ureterectomy Cystectomy Ileal conduit urinary diversion Plan -Continue zosyn for now. will likely DC soon. -BP improved. -cultures negative for 3 days. -Urology closely following, patient will advance diet as tolerated. -As needed medications for pain and for tachycardia Yogi Mullins DO Problems: Subjective 24 Hr Interval Summary Free Text/Dictation no new complaints, doing well with PT Exam/Review of Systems Vital Signs Vitals Vital Signs Date Time Temp Pulse Resp B/P Pulse Ox O2 Delivery O2 Flow Rate FiO2 03/12/17 07:00 98.9 63 20 132/60 98 03/11/17 10:25 Nasal Cannula 2.0 Intake and Output 03/11/17 03/11/17 03/12/17 15:00 23:00 07:00 Intake Total 460 ml 1250 ml 440 ml Output Total 275 ml 1080 ml 500 ml Balance 185 ml 170 ml -60 ml Exam Physical exam General: Patient is laying in bed and answers questions appropriately Mentation: Patient is alert and oriented 4, Head: Normocephalic atraumatic Eyes: EOMI, pupils reactive to light Neck: Supple, nontender, midline Respiratory: Clear to auscultation, short breaths Cardiovascular: Tachycardic, no obvious murmurs Gastrointestinal: Multiple incisions in the abdominal area, grinding machine tender, . Neurological: Moves all extremities spontaneously Skin: No new skin lesions Results Result Diagram: 03/12/172 03/12/17 045 Results 24 hrs Laboratory Tests Test 03/12/17 04:52 White Blood Count 7.6 Red Blood Count 2.77 L Hemoglobin 8.3 L Hematocrit 25.4 L Mean Corpuscular Volume 91.7 Mean Corpuscular Hemoglobin 30.0 Mean Corpuscular Hemoglobin Concent 32.7 Red Cell Distribution Width 14.5 Platelet Count 223 # Mean Platelet Volume 10.7 H Neutrophils % 77.4 H Lymphocytes % 13.7 L Monocytes % 5.0 Eosinophils % 2.1 Basophils % 0.3 Nucleated Red Blood Cells % 0.0 Neutrophils # 5.9 Lymphocytes # 1.0 Monocytes # 0.4 Eosinophils # 0.2 Basophils # 0.0 Nucleated Red Blood Cells # 0.0 Sodium Level 142 Potassium Level 3.3 L Chloride Level 106 Carbon Dioxide Level 25 Anion Gap 14 Blood Urea Nitrogen 7 Creatinine 0.62 Glucose Level 128 # Calcium Level 8.1 L Phosphorus Level 3.0 Magnesium Level 2.2 Medications Medications Current Medications Morphine Sulfate (morphine) 4 mg Q2H PRN IV PAIN LEVEL 6-10 Last administered on 03/11/17 11:54; Admin Dose 4 MG; Start 03/06/17 at 18:00 Acetaminophen (Tylenol Liquid) 650 mg Q6H PRN NGT PAIN AND OR ELEVATED TEMP Last administered on 03/12/17 05:38; Admin Dose 650 MG; Start 03/06/17 at 18:30 Ondansetron HCl (Zofran Inj) 4 mg Q6H PRN IV NAUSEA AND/OR VOMITING Last administered on 03/07/17 04:32; Admin Dose 4 MG; Start 03/06/17 at 18:00 Pantoprazole 40 mg 40 mg DAILY@06 IV Last administered on 03/12/17 05:38; Admin Dose 40 MG; Start 03/07/17 at 06:00 Piperacillin Sod/ Tazobactam Sod (Zosyn 3.375gm/ 100 ml (Pmx)) 100 ml @ 200 mls /hr Q6 IVPB Last administered on 03/12/17 11:32; Admin Dose 200 MLS/HR; Start 03/09/17 at 18:00 Morphine Sulfate (morphine) 2 mg Q2H PRN IV PAIN Last administered on 15:51; Admin Dose 2 MG; Start 03/10/17 at 11:30 Hydralazine HCl (Apresoline) 10 mg Q4H PRN IV SBP >160; Start 03/12/17 at 04:00 Simethicone (Mylicon) 120 mg Q6H PRN PO DISTENSION/GAS/BLOATING Last administered on 03/12/17 09:47; Admin Dose 120 MG; Start 7/20/17 at 10:00 YOGI MULLINS 20, 2017 17:37
[2017-03-12 19:32] VITALS: BP 125/66; RESP 22
[2017-03-12] MEDS: morphine 4 MG/ML VIAL IV PRN (20:59)
[2017-03-12] MEDS: BISACODYL 10 MG SUPP PR PRN (23:52)
[2017-03-13] MEDS: morphine 4 MG/ML VIAL IV PRN ×3 (00:28→21:50)
[2017-03-13] MEDS: PIPER-TAZO 3.375 GM IV (PMX) 100 ML IVPB SCH ×3 (00:29→11:57)
[2017-03-13] MEDS: PANTOPRAZOLE 40 MG INJ IV SCH (05:40)
[2017-03-13 05:59] LABS: ADD SCAN DIFF NO
[2017-03-13 06:04] LABS: ABNORMAL IP MESSAGE 1; BASOPHILS % 0.2 % (0.0-2.0); EOSINOPHILS # 0.1 10^3/ul (0.0-0.5); EOSINOPHILS % 1.1 % (0.0-7.0); HEMATOCRIT 26.9 % (37.0-47.0); HEMOGLOBIN 8.9 g/dl (12.0-16.0); LYMPHOCYTES # 1.3 10^3/ul (0.8-2.9); MEAN CORPUSCULAR HEMOGLOBIN 30.1 pg (29.0-33.0); MEAN CORPUSCULAR HGB CONC 33.1 g/dl (32.0-37.0); MEAN CORPUSCULAR VOLUME 90.9 fl (82.0-101.0); MEAN PLATELET VOLUME 10.4 fl (7.4-10.4); MONOCYTE # 0.5 10^3/ul (0.3-0.9); MONOCYTES % 5.7 % (0.0-11.0); NEUTROPHIL # 5.8 10^3/ul (1.6-7.5); NEUTROPHILS % 71.4 % (39.0-77.0); NUCLEATED RED BLOOD CELLS # 0.1 10^3/ul (0.0-0.0); PLATELET COUNT 311 10^3/UL (140-415); RED BLOOD COUNT 2.96 10^6/ul (4.20-5.40); RED CELL DISTRIBUTION WIDTH 14.3 % (11.5-14.5); WHITE BLOOD COUNT 8.1 10^3/ul (4.8-10.8)
[2017-03-13 06:53] LABS: CALCIUM 8.1 mg/dl (8.4-10.2); CREATININE 0.71 mg/dl (0.44-1.00); MAGNESIUM 2.2 mg/dl (1.7-2.5); PHOSPHORUS 4.5 mg/dl (2.5-4.9); POTASSIUM 3.3 mmol/L (3.5-5.1)
[2017-03-13 08:40] VITALS: BP 129/56; RESP 20
[2017-03-13] MEDS: morphine 2 MG INJ IV PRN ×2 (10:44→11:57)
[2017-03-13] MEDS ORDERED: POTASSIUM CHLORIDE (SR) 20 MEQ TAB PO STA (13:47)
--- NOTE | 2017-03-13 13:54 | PN ---
Date/Time of Note Date/Time of Note DATE: 03/13/17 TIME: 13:51 Assessment/Plan VTE Prophylaxis VTE Prophylaxis Intervention: SCD's Lines/Catheters IV Catheter Type (from Nrs): Peripheral IV Urinary Cath still in place: No (UROSTOMY ) Assessment/Plan Chief Complaint/Hosp Course Assessment Sepsis, tachycardia and fever with abdominal source, resolved anemia Fever Tachycardia, sinus Abdominal pain Electrolyte derangement Hypoalbuminemia Elevated AST and ALT, resolved Prediabetes Bladder cancer, status post multiple resections Vaginectomy Ureterectomy Cystectomy Ileal conduit urinary diversion Plan -DC zosyn -DC central line -cultures negative -Urology closely following, patient will advance diet as tolerated. -As needed medications for pain and for tachycardia Yogi Mullins DO Problems: Subjective 24 Hr Interval Summary Free Text/Dictation feeling well Exam/Review of Systems Vital Signs Vitals Vital Signs Date Time Temp Pulse Resp B/P Pulse Ox O2 Delivery O2 Flow Rate FiO2 03/13/17 08:40 98.8 68 20 129/56 97 03/12/17 20:00 Nasal Cannula 2.0 Intake and Output 03/12/17 03/12/17 03/13/17 15:00 23:00 07:00 Intake Total 100 ml 1290 ml 1040 ml Output Total 1520 ml 910 ml Balance 100 ml -230 ml 130 ml Exam Physical exam General: Patient is laying in bed and answers questions appropriately Mentation: Patient is alert and oriented 4, Head: Normocephalic atraumatic Eyes: EOMI, pupils reactive to light Neck: Supple, nontender, midline Respiratory: Clear to auscultation, short breaths Cardiovascular: Tachycardic, no obvious murmurs Gastrointestinal: Multiple incisions in the abdominal area, oil process stillman, . Neurological: Moves all extremities spontaneously Skin: No new skin lesions Results Result Diagram: 03/13/17 0434 03/13/17 0434 Results 24 hrs Laboratory Tests Test 03/13/17 04:34 White Blood Count 8.1 Red Blood Count 2.96 L Hemoglobin 8.9 L Hematocrit 26.9 L Mean Corpuscular Volume 90.9 Mean Corpuscular Hemoglobin 30.1 Mean Corpuscular Hemoglobin Concent 33.1 Red Cell Distribution Width 14.3 Platelet Count 311 # Mean Platelet Volume 10.4 Neutrophils % 71.4 Lymphocytes % 16.0 Monocytes % 5.7 Eosinophils % 1.1 Basophils % 0.2 Neutrophils # 5.8 Lymphocytes # 1.3 Monocytes # 0.5 Eosinophils # 0.1 Basophils # 0.0 Nucleated Red Blood Cells # 0.1 H Sodium Level 143 Potassium Level 3.3 L Chloride Level 106 Carbon Dioxide Level 25 Anion Gap 15 Blood Urea Nitrogen 11 Creatinine 0.71 Glucose Level 131 Calcium Level 8.1 L Phosphorus Level 4.5 Magnesium Level 2.2 Medications Medications Current Medications Morphine Sulfate (morphine) 4 mg Q2H PRN IV PAIN LEVEL 6-10 Last administered on 03/13/17 00:28; Admin Dose 4 MG; Start 03/06/17 at 18:00 Acetaminophen (Tylenol Liquid) 650 mg Q6H PRN NGT PAIN AND OR ELEVATED TEMP Last administered on 03/12/17 05:38; Admin Dose 650 MG; Start 03/06/17 at 18:30 Ondansetron HCl (Zofran Inj) 4 mg Q6H PRN IV NAUSEA AND/OR VOMITING Last administered on 03/07/17 04:32; Admin Dose 4 MG; Start 03/06/17 at 18:00 Pantoprazole (Protonix Iv) 40 mg DAILY@06 IV Last administered on 03/13/17 05: 40; Admin Dose 40 MG; Start 03/07/17 at 06:00 Morphine Sulfate (morphine) 2 mg Q2H PRN IV PAIN Last administered on 11:57; Admin Dose 2 MG; Start 03/10/17 at 11:30 Hydralazine HCl (Apresoline) 10 mg Q4H PRN IV SBP >160; Start 03/12/17 at 04:00 Simethicone (Mylicon) 120 mg Q6H PRN PO DISTENSION/GAS/BLOATING Last administered on 03/13/17 05:01; Admin Dose 120 MG; Start 03/12/17 at 10:00 Bisacodyl (Dulcolax Supp) 10 mg BID PRN [place] CONSTIPATION Last administered on 23:52; Admin Dose 10 MG; Start 03/13/17 at 00:00 YOGI MULLINS Mar 13, 2017 13:54
--- NOTE | 2017-03-13 18:00 | CONS ---
Date/Time of Note Date/Time of Note DATE: 03/13/17 TIME: 17:45 Assessment/Plan Assessment/Plan Chief Complaint/Hosp Course s/p radical cystectomy. Problems: Additional Assessment/Plan Pt feeling overall better. Increase ambulation, advance to soft diet, decrease IV fluids to 50 cc/hr, switch from IV morphine to po norco, colace for constipation. Monitor progress. Consultation Date/Type/Reason Admit Date/Time Mar 06, 2017 at 05:35 Initial Consult Date 03/07/17 Type of Consultation: Medicine 24 HR Interval Summary Free Text/Dictation Pt feeling overall better. She is able to tolerate full clear diet. No nausea/ vomiting. She has been passing gas, had small BMs today and yesterday. Pain is improving She felt comfortable ambulating, twice today. Yesterday with some dizziness, but no dizziness when ambulating today Exam/Review of Systems Vital Signs Vitals Vital Signs Date Time Temp Pulse Resp B/P Pulse Ox O2 Delivery O2 Flow Rate FiO2 03/13/17 08:40 98.8 68 20 129/56 97 03/12/17 20:00 Nasal Cannula 2.0 Intake and Output 03/12/17 03/12/17 03/13/17 15:00 23:00 07:00 Intake Total 100 ml 1290 ml 1040 ml Output Total 1520 ml 910 ml Balance 100 ml -230 ml 130 ml Exam Urostomy in place, draining clear yellow urine. Stoma pink, no signs of infection. Wounds C/D/I. LE strength 4/5 Results Result Diagram: 03/13/17 0434 03/13/17 0434 Results 24 hrs Laboratory Tests Test 03/13/17 04:34 White Blood Count 8.1 Red Blood Count 2.96 L Hemoglobin 8.9 L Hematocrit 26.9 L Mean Corpuscular Volume 90.9 Mean Corpuscular Hemoglobin 30.1 Mean Corpuscular Hemoglobin Concent 33.1 Red Cell Distribution Width 14.3 Platelet Count 311 # Mean Platelet Volume 10.4 Neutrophils % 71.4 Lymphocytes % 16.0 Monocytes % 5.7 Eosinophils % 1.1 Basophils % 0.2 Neutrophils # 5.8 Lymphocytes # 1.3 Monocytes # 0.5 Eosinophils # 0.1 Basophils # 0.0 Nucleated Red Blood Cells # 0.1 H Sodium Level 143 Potassium Level 3.3 L Chloride Level 106 Carbon Dioxide Level 25 Anion Gap 15 Blood Urea Nitrogen 11 Creatinine 0.71 Glucose Level 131 Calcium Level 8.1 L Phosphorus Level 4.5 Magnesium Level 2.2 Medications Medications Current Medications Morphine Sulfate (morphine) 4 mg Q2H PRN IV PAIN LEVEL 6-10 Last administered on 03/13/17 16:47; Admin Dose 4 MG; Start 03/06/17 at 18:00 Acetaminophen (Tylenol Liquid) 650 mg Q6H PRN NGT PAIN AND OR ELEVATED TEMP Last administered on 03/12/17 05:38; Admin Dose 650 MG; Start 03/06/17 at 18:30 Ondansetron HCl (Zofran Inj) 4 mg Q6H PRN IV NAUSEA AND/OR VOMITING Last administered on 03/07/17 04:32; Admin Dose 4 MG; Start 03/06/17 at 18:00 Pantoprazole (Protonix Iv) 40 mg DAILY@06 IV Last administered on 03/13/17 05: 40; Admin Dose 40 MG; Start 03/07/17 at 06:00 Morphine Sulfate (morphine) 2 mg Q2H PRN IV PAIN Last administered on 11:57; Admin Dose 2 MG; Start 03/10/17 at 11:30 Hydralazine HCl (Apresoline) 10 mg Q4H PRN IV SBP >160; Start 03/12/17 at 04:00 Simethicone (Mylicon) 120 mg Q6H PRN PO DISTENSION/GAS/BLOATING Last administered on 03/13/17 05:01; Admin Dose 120 MG; Start 03/12/17 at 10:00 Bisacodyl (Dulcolax Supp) 10 mg BID PRN [place] CONSTIPATION Last administered on 23:52; Admin Dose 10 MG; Start 03/13/17 at 00:00 BENIGNO WELSH Mar 13, 2017 17:55
[2017-03-13] MEDS: DOCUSATE SODIUM 100 MG CAP PO SCH (20:51)
[2017-03-13 21:10] VITALS: BP 132/61; RESP 20
[2017-03-14] MEDS: BISACODYL 10 MG SUPP PR PRN (00:37)
[2017-03-14] MEDS: morphine 4 MG/ML VIAL IV PRN ×2 (00:53→05:44)
[2017-03-14] MEDS: PANTOPRAZOLE 40 MG INJ IV SCH (05:44)
[2017-03-14 06:08] LABS: CALCIUM 8.2 mg/dl (8.4-10.2); CREATININE 0.73 mg/dl (0.44-1.00); MAGNESIUM 2.2 mg/dl (1.7-2.5); PHOSPHORUS 3.5 mg/dl (2.5-4.9); POTASSIUM 4.3 mmol/L (3.5-5.1)
[2017-03-14 07:00] VITALS: BP 112/55; RESP 20
[2017-03-14] MEDS: DOCUSATE SODIUM 100 MG CAP PO SCH ×2 (08:47→20:20)
--- NOTE | 2017-03-14 11:01 | PN ---
Date/Time of Note Date/Time of Note DATE: 03/14/17 TIME: 10:57 Assessment/Plan VTE Prophylaxis VTE Prophylaxis Intervention: ambulation, SCD's Lines/Catheters IV Catheter Type (from Nrsg): Saline Lock Central line still needed: No Urinary Cath still in place: No Assessment/Plan Chief Complaint/Hosp Course Cystectomy/urethrectomy/anterior vaginectomy, BPLND, Ileal conduit urinary diversion Hypernatrermia:improved POST OP pain elevated HR Problems: Assessment/Plan Assessment: Doing well post op Constipation Fatigue Low HGB: stable PLAN 1. Heplock IVF 2. Cont soft diet 3. MOM for constipation 4. Ambulate 5. Wound therapy nurse to teach stoma care and set up stoma supplies at home 6. Anticipate D/C home in the next two days Subjective 24 Hr Interval Summary Free Text/Dictation feeling well C/O no BM but passing gas Ambulated, No vomit Exam/Review of Systems Vital Signs Vitals Vital Signs Date Time Temp Pulse Resp B/P Pulse Ox O2 Delivery O2 Flow Rate FiO2 03/14/17 07:00 98.5 83 20 112/55 98 03/12/17 20:00 Nasal Cannula 2.0 Intake and Output 03/13/17 03/13/17 03/14/17 15:00 23:00 07:00 Intake Total 100 ml 720 ml 650 ml Output Total 1505 ml 950 ml Balance 100 ml -785 ml -300 ml Exam Constitutional: alert, oriented Gastrointestinal: non-tender, other (wounds C/D/I), soft Genitourinary - Female: other (Stoma pink and healthy, draining yellow urine.) Results Result Diagram: 03/13/17 0434 03/14/17 0445 Results 24 hrs Laboratory Tests Test 03/14/17 04:45 Sodium Level 143 Potassium Level 4.3 Chloride Level 106 Carbon Dioxide Level 26 Anion Gap 15 Blood Urea Nitrogen 13 Creatinine 0.73 Glucose Level 129 Calcium Level 8.2 L Phosphorus Level 3.5 Magnesium Level 2.2 Medications Medications Current Medications Morphine Sulfate (morphine) 4 mg Q2H PRN IV PAIN LEVEL 6-10 Last administered on 03/14/17 05:44; Admin Dose 4 MG; Start 03/06/17 at 18:00 Acetaminophen (Tylenol Liquid) 650 mg Q6H PRN NGT PAIN AND OR ELEVATED TEMP Last administered on 03/12/17 05:38; Admin Dose 650 MG; Start 03/06/17 at 18:30 Ondansetron HCl (Zofran Inj) 4 mg Q6H PRN IV NAUSEA AND/OR VOMITING Last administered on 03/07/17 04:32; Admin Dose 4 MG; Start 03/06/17 at 18:00 Pantoprazole (Protonix Iv) 40 mg DAILY@06 IV Last administered on 03/14/17 05: 44; Admin Dose 40 MG; Start 03/07/17 at 06:00 Morphine Sulfate (morphine) 2 mg Q2H PRN IV PAIN Last administered on 11:57; Admin Dose 2 MG; Start 03/10/17 at 11:30 Hydralazine HCl (Apresoline) 10 mg Q4H PRN IV SBP >160; Start 03/12/17 at 04:00 Simethicone (Mylicon) 120 mg Q6H PRN PO DISTENSION/GAS/BLOATING Last administered on 03/13/17 05:01; Admin Dose 120 MG; Start 03/12/17 at 10:00 Bisacodyl (Dulcolax Supp) 10 mg BID PRN [place] CONSTIPATION Last administered on 00:37; Admin Dose 10 MG; Start 03/13/17 at 00:00 Docusate Sodium (Colace) 100 mg BID PO Last administered on 03/14/17 08:47; Admin Dose 100 MG; Start 03/13/17 at 21:00 Acetaminophen/ Hydrocodone Bitart ([place] (5/325)) 1 tab Q4H PRN PO MILD PAIN LEVEL 1-3; Start 03/13/17 at 18:30 Acetaminophen/ Hydrocodone Bitart ([place] (5/325)) 2 tab Q4H PRN PO MODERATE PAIN LEVEL 4-6; Start 03/13/17 at 18:30 HAMIDA VU Mar 14, 2017 11:01
[2017-03-14] MEDS: morphine 2 MG INJ IV PRN ×3 (11:27→21:39)
[2017-03-14] MEDS: MAGNESIUM HYDROXIDE 30ML CUP PO SCH ×2 (13:03→20:20)
--- NOTE | 2017-03-14 13:06 | PN ---
Date/Time of Note Date/Time of Note DATE: 03/14/17 TIME: 13:06 Assessment/Plan VTE Prophylaxis VTE Prophylaxis Intervention: ambulation Lines/Catheters IV Catheter Type (from Nrs): Saline Lock Urinary Cath still in place: No Assessment/Plan Chief Complaint/Hosp Course Assessment Sepsis, tachycardia and fever with abdominal source, resolved anemia Fever Tachycardia, sinus Abdominal pain Electrolyte derangement Hypoalbuminemia Elevated AST and ALT, resolved Prediabetes Bladder cancer, status post multiple resections Vaginectomy Ureterectomy Cystectomy Ileal conduit urinary diversion Plan -cultures negative -Urology closely following, patient will advance diet as tolerated. -As needed medications for pain and for tachycardia Yogi Mullins DO Problems: Subjective 24 Hr Interval Summary Free Text/Dictation feels better today Exam/Review of Systems Vital Signs Vitals Vital Signs Date Time Temp Pulse Resp B/P Pulse Ox O2 Delivery O2 Flow Rate FiO2 03/14/17 07:00 98.5 83 20 112/55 98 03/12/17 20:00 Nasal Cannula 2.0 Intake and Output 03/13/17 03/13/17 03/14/17 15:00 23:00 07:00 Intake Total 100 ml 720 ml 650 ml Output Total 1505 ml 950 ml Balance 100 ml -785 ml -300 ml Exam Physical exam General: Patient is laying in bed and answers questions appropriately Mentation: Patient is alert and oriented 4, Head: Normocephalic atraumatic Eyes: EOMI, pupils reactive to light Neck: Supple, nontender, midline Respiratory: Clear to auscultation, short breaths Cardiovascular: Tachycardic, no obvious murmurs Gastrointestinal: Multiple incisions in the abdominal area, hook tender, . Neurological: Moves all extremities spontaneously Skin: No new skin lesions Results Result Diagram: 03/13/17 0434 03/14/17 0445 Results 24 hrs Laboratory Tests Test 03/14/17 04:45 Sodium Level 143 Potassium Level 4.3 Chloride Level 106 Carbon Dioxide Level 26 Anion Gap 15 Blood Urea Nitrogen 13 Creatinine 0.73 Glucose Level 129 Calcium Level 8.2 L Phosphorus Level 3.5 Magnesium Level 2.2 Medications Medications Current Medications Morphine Sulfate (morphine) 4 mg Q2H PRN IV PAIN LEVEL 6-10 Last administered on 03/14/17t 05:44; Admin Dose 4 MG; Start 03/06/17 at 18:00 Acetaminophen (Tylenol Liquid) 650 mg Q6H PRN NGT PAIN AND OR ELEVATED TEMP Last administered on 03/12/17 05:38; Admin Dose 650 MG; Start 03/06/17 at 18:30 Ondansetron HCl (Zofran Inj) 4 mg Q6H PRN IV NAUSEA AND/OR VOMITING Last administered on 03/07/17 04:32; Admin Dose 4 MG; Start 03/06/17 at 18:00 Pantoprazole (Protonix Iv) 40 mg DAILY@06 IV Last administered on 03/14/17 05: 44; Admin Dose 40 MG; Start 03/07/17 at 06:00 Morphine Sulfate (morphine) 2 mg Q2H PRN IV PAIN Last administered on 11:27; Admin Dose 2 MG; Start 03/10/17 at 11:30 Hydralazine HCl (Apresoline) 10 mg Q4H PRN IV SBP >160; Start 03/12/17 at 04:00 Simethicone (Mylicon) 120 mg Q6H PRN PO DISTENSION/GAS/BLOATING Last administered on 03/13/17 05:01; Admin Dose 120 MG; Start 03/12/17 at 10:00 Bisacodyl (Dulcolax Supp) 10 mg BID PRN [place] CONSTIPATION Last administered on 00:37; Admin Dose 10 MG; Start 03/13/17 at 00:00 Docusate Sodium (Colace) 100 mg BID PO Last administered on 03/14/17 08:47; Admin Dose 100 MG; Start 03/13/17 at 21:00 Acetaminophen/ Hydrocodone Bitart ([place] (5/325)) 1 tab Q4H PRN PO MILD PAIN LEVEL 1-3; Start 03/13/17 at 18:30 Acetaminophen/ Hydrocodone Bitart ([place] (5/325)) 2 tab Q4H PRN PO MODERATE PAIN LEVEL 4-6; Start 03/13/17 at 18:30 Magnesium Hydroxide (Milk Of Mag) 30 ml TID PO Last administered on 03/14/17 13:03; Admin Dose 30 ML; Start 03/14/17 at 13:00; Stop 03/16/17 at 21:00 YOGI MULLINS Mar 14, 2017 13:06
[2017-03-14 19:52] VITALS: BP 127/62; RESP 20
[2017-03-14 20:23] VITALS: BP 132/68; PULSE 78; RESP 18
[2017-03-15] MEDS: morphine 2 MG INJ IV PRN ×2 (00:16→05:15)
[2017-03-15 01:23] VITALS: BP 116/68; RESP 22
[2017-03-15 02:10] VITALS: BP 128/72; PULSE 84; RESP 18
[2017-03-15] MEDS: PANTOPRAZOLE 40 MG INJ IV SCH (05:15)
[2017-03-15 07:32] LABS: CALCIUM 8.6 mg/dl (8.4-10.2); CREATININE 0.67 mg/dl (0.44-1.00); MAGNESIUM 2.4 mg/dl (1.7-2.5); PHOSPHORUS 3.6 mg/dl (2.5-4.9); POTASSIUM 3.8 mmol/L (3.5-5.1)
[2017-03-15 08:32] VITALS: BP 111/56; RESP 19
[2017-03-15] MEDS: MAGNESIUM HYDROXIDE 30ML CUP PO SCH ×3 (09:00→20:37)
[2017-03-15] MEDS: DOCUSATE SODIUM 100 MG CAP PO SCH ×2 (09:00→20:37)
--- NOTE | 2017-03-15 09:37 | PN ---
Date/Time of Note Date/Time of Note DATE: 03/15/17 TIME: 09:33 Assessment/Plan VTE Prophylaxis VTE Prophylaxis Intervention: ambulation, SCD's Lines/Catheters IV Catheter Type (from Nrsg): Peripheral IV Central line still needed: No Urinary Cath still in place: No Assessment/Plan Chief Complaint/Hosp Course Cystectomy/urethrectomy/anterior vaginectomy, BPLND, Ileal conduit urinary diversion Hypernatrermia:improved POST OP pain elevated HR Problems: Assessment/Plan Continues to improve with bowel function Drain output very low Ilesu resolved No signs of infection PLAN: Removed red rubber catheter Awaiting ostomy teaching and supply set up Anticipate d/c in one to two days Subjective 24 Hr Interval Summary Free Text/Dictation tolerating PO's Had a BM pain is well controlled Exam/Review of Systems Vital Signs Vitals Vital Signs Date Time Temp Pulse Resp B/P Pulse Ox O2 Delivery O2 Flow Rate FiO2 03/15/17 08:32 98.5 79 19 111/56 99 03/15/17 02:10 Room Air 03/12/17 20:00 2.0 Intake and Output 03/14/17 03/14/17 03/15/17 15:00 23:00 07:00 Intake Total 1750 ml 1200 ml Output Total 825 ml 1400 ml Balance 925 ml -200 ml Exam Constitutional: non-verbal, No alert, No distress, No frail, No obese, No oriented, No other, No well developed Gastrointestinal: nl liver, spleen, non-tender, other (Wounds C/D/I), soft Genitourinary - Female: other (Stoma; pink healthy, ostomy bag changed today and red rubber cath removed) Results Result Diagram: 03/13/17 0434 03/15/17 0519 Results 24 hrs Laboratory Tests Test 03/15/17 05:19 Sodium Level 139 Potassium Level 3.8 Chloride Level 102 Carbon Dioxide Level 27 Anion Gap 14 Blood Urea Nitrogen 14 Creatinine 0.67 Glucose Level 120 Calcium Level 8.6 Phosphorus Level 3.6 Magnesium Level 2.4 Medications Medications Current Medications Morphine Sulfate (morphine) 4 mg Q2H PRN IV PAIN LEVEL 6-10 Last administered on 03/14/17t 05:44; Admin Dose 4 MG; Start 03/06/17 at 18:00 Acetaminophen (Tylenol Liquid) 650 mg Q6H PRN NGT PAIN AND OR ELEVATED TEMP Last administered on 03/12/17 05:38; Admin Dose 650 MG; Start 03/06/17 at 18:30 Ondansetron HCl (Zofran Inj) 4 mg Q6H PRN IV NAUSEA AND/OR VOMITING Last administered on 03/07/17 04:32; Admin Dose 4 MG; Start 03/06/17 at 18:00 Pantoprazole (Protonix Iv) 40 mg DAILY@06 IV Last administered on 03/15/17 05: 15; Admin Dose 40 MG; Start 03/07/17 at 06:00 Morphine Sulfate (morphine) 2 mg Q2H PRN IV PAIN Last administered on 05:15; Admin Dose 2 MG; Start 03/10/17 at 11:30 Hydralazine HCl (Apresoline) 10 mg Q4H PRN IV SBP >160; Start 03/12/17 at 04:00 Simethicone (Mylicon) 120 mg Q6H PRN PO DISTENSION/GAS/BLOATING Last administered on 03/13/17 05:01; Admin Dose 120 MG; Start 03/12/17 at 10:00 Bisacodyl (Dulcolax Supp) 10 mg BID PRN [place] CONSTIPATION Last administered on 00:37; Admin Dose 10 MG; Start 03/13/17 at 00:00 Docusate Sodium (Colace) 100 mg BID PO Last administered on 03/14/17 08:47; Admin Dose 100 MG; Start 03/13/17 at 21:00 Acetaminophen/ Hydrocodone Bitart ([place] (5/325)) 1 tab Q4H PRN PO MILD PAIN LEVEL 1-3; Start 03/13/17 at 18:30 Acetaminophen/ Hydrocodone Bitart ([place] (5/325)) 2 tab Q4H PRN PO MODERATE PAIN LEVEL 4-6; Start 03/13/17 at 18:30 Magnesium Hydroxide (Milk Of Mag) 30 ml TID PO Last administered on 03/14/17 13:03; Admin Dose 30 ML; Start 03/14/17 at 13:00; Stop 03/16/17 at 21:00 HAMIDA VU Mar 15, 2017 09:37
[2017-03-15] MEDS: HYDROCODONE/APAP (5/325) TAB PO PRN ×2 (10:31→18:48)
--- NOTE | 2017-03-15 15:10 | PN ---
Date/Time of Note Date/Time of Note DATE: 03/15/17 TIME: 15:08 Assessment/Plan VTE Prophylaxis VTE Prophylaxis Intervention: SCD's Lines/Catheters IV Catheter Type (from Nrs): Saline Lock Urinary Cath still in place: No Assessment/Plan Chief Complaint/Hosp Course Assessment Sepsis, tachycardia and fever with abdominal source, resolved anemia Fever Tachycardia, sinus Abdominal pain Electrolyte derangement Hypoalbuminemia Elevated AST and ALT, resolved Prediabetes Bladder cancer, status post multiple resections Vaginectomy Ureterectomy Cystectomy Ileal conduit urinary diversion Plan -cultures negative -Urology closely following, patient will advance diet as tolerated. -As needed medications for pain and for tachycardia -anticipate DC in 1-2 days per primary urology. Yogi Mullins DO Problems: Subjective 24 Hr Interval Summary Free Text/Dictation in good spirits, doing well, no acute complaints Exam/Review of Systems Vital Signs Vitals Vital Signs Date Time Temp Pulse Resp B/P Pulse Ox O2 Delivery O2 Flow Rate FiO2 03/15/17 08:32 98.5 79 19 111/56 99 03/15/17 02:10 Room Air 03/12/17 20:00 2.0 Intake and Output 03/14/17 03/14/17 03/15/17 15:00 23:00 07:00 Intake Total 1750 ml 1200 ml Output Total 825 ml 1400 ml Balance 925 ml -200 ml Exam Physical exam General: Patient is laying in bed and answers questions appropriately Mentation: Patient is alert and oriented 4, Head: Normocephalic atraumatic Eyes: EOMI, pupils reactive to light Neck: Supple, nontender, midline Respiratory: Clear to auscultation, short breaths Cardiovascular: regular rate, no obvious murmurs Gastrointestinal: Multiple incisions in the abdominal area, clean rice grader and reel tender, . Neurological: Moves all extremities spontaneously Skin: No new skin lesions Results Result Diagram: 03/13/17 0434 03/15/17 0519 Results 24 hrs Laboratory Tests Test 03/15/17 05:19 Sodium Level 139 Potassium Level 3.8 Chloride Level 102 Carbon Dioxide Level 27 Anion Gap 14 Blood Urea Nitrogen 14 Creatinine 0.67 Glucose Level 120 Calcium Level 8.6 Phosphorus Level 3.6 Magnesium Level 2.4 Medications Medications Current Medications Morphine Sulfate (morphine) 4 mg Q2H PRN IV PAIN LEVEL 6-10 Last administered on 03/14/17t 05:44; Admin Dose 4 MG; Start 7/14/17 at 18:00 Acetaminophen (Tylenol Liquid) 650 mg Q6H PRN NGT PAIN AND OR ELEVATED TEMP Last administered on 03/12/17 05:38; Admin Dose 650 MG; Start 03/06/17 at 18:30 Ondansetron HCl (Zofran Inj) 4 mg Q6H PRN IV NAUSEA AND/OR VOMITING Last administered on 03/07/17 04:32; Admin Dose 4 MG; Start 03/06/17 at 18:00 Pantoprazole (Protonix Iv) 40 mg DAILY@06 IV Last administered on 03/15/17 05: 15; Admin Dose 40 MG; Start 03/07/17 at 06:00 Morphine Sulfate (morphine) 2 mg Q2H PRN IV PAIN Last administered on 05:15; Admin Dose 2 MG; Start 03/10/17 at 11:30 Hydralazine HCl (Apresoline) 10 mg Q4H PRN IV SBP >160; Start 03/12/17 at 04:00 Simethicone (Mylicon) 120 mg Q6H PRN PO DISTENSION/GAS/BLOATING Last administered on 03/13/17 05:01; Admin Dose 120 MG; Start 03/12/17 at 10:00 Bisacodyl (Dulcolax Supp) 10 mg BID PRN [place] CONSTIPATION Last administered on 00:37; Admin Dose 10 MG; Start 03/13/17 at 00:00 Docusate Sodium (Colace) 100 mg BID PO Last administered on 03/14/17 08:47; Admin Dose 100 MG; Start 03/13/17 at 21:00 Acetaminophen/ Hydrocodone Bitart ([place] (5/325)) 1 tab Q4H PRN PO MILD PAIN LEVEL 1-3; Start 03/13/17 at 18:30 Acetaminophen/ Hydrocodone Bitart ([place] (5/325)) 2 tab Q4H PRN PO MODERATE PAIN LEVEL 4-6 Last administered on 03/15/17 10:31; Admin Dose 2 TAB; Start at 18:30 Magnesium Hydroxide (Milk Of Mag) 30 ml TID PO Last administered on 03/14/17 13:03; Admin Dose 30 ML; Start 03/14/17 at 13:00; Stop 03/16/17 at 21:00 YOGI MULLINS Mar 15, 2017 15:10
[2017-03-15 19:15] VITALS: BP 134/61; RESP 20
[2017-03-16] MEDS: morphine 4 MG/ML VIAL IV PRN ×2 (00:05→06:20)
[2017-03-16] MEDS: BISACODYL 10 MG SUPP PR PRN (06:20)
[2017-03-16] MEDS: PANTOPRAZOLE 40 MG INJ IV SCH (06:20)
[2017-03-16 08:00] VITALS: BP 140/62; RESP 19
[2017-03-16] MEDS: MAGNESIUM HYDROXIDE 30ML CUP PO SCH ×4 (08:56→21:00)
[2017-03-16] MEDS: DOCUSATE SODIUM 100 MG CAP PO SCH ×2 (08:56→21:00)
--- NOTE | 2017-03-16 11:18 | CONS ---
Date/Time of Note Date/Time of Note DATE: 03/16/17 TIME: 11:15 Assessment/Plan Assessment/Plan Chief Complaint/Hosp Course Chief Complaint/Hosp Course Assessment Sepsis, tachycardia and fever with abdominal source, resolved anemia, stable continue to monitor Tachycardia, sinus, resolved Abdominal pain Electrolyte derangement Hypoalbuminemia Elevated AST and ALT, resolved Prediabetes Bladder cancer, status post multiple resections Vaginectomy Ureterectomy Cystectomy Ileal conduit urinary diversion Plan -cultures negative -Urology closely following, patient will advance diet as tolerated. -As needed medications for pain and for tachycardia -anticipate DC in 1-2 days per primary urology. Problems: Consultation Date/Type/Reason Admit Date/Time Mar 06, 2017 at 05:35 Initial Consult Date 03/07/17 Type of Consultation: Medicine Referring Provider: HAMIDA VU 24 HR Interval Summary Free Text/Dictation No acute event Patient denies of any chest pain or shortness of breath Tolerating oral intake Positive bowel movement Constitutional: improved Exam/Review of Systems Vital Signs Vitals Vital Signs Date Time Temp Pulse Resp B/P Pulse Ox O2 Delivery O2 Flow Rate FiO2 03/16/17 08:00 98.5 79 19 140/62 95 03/15/17 02:10 Room Air 03/12/17 20:00 2.0 Intake and Output 03/15/17 03/15/17 03/16/17 15:00 23:00 07:00 Intake Total 2390 ml 500 ml Output Total 30 ml 1250 ml 1060 ml Balance -30 ml 1140 ml -560 ml Exam General: The patient is well-developed, Not in acute distress. HEENT: Atraumatic, normocephalic. The pupils are equal and round . Neck: Supple with full range of motion. Chest: Normal expansion of the thorax during inspiration Lungs: Clear to auscultation bilaterally Heart: Normal S1-S2, Regular rhythm and rate. Abdomen: Soft , nontender, nondistended , bowel sounds are present. Surgical site is dry and clean, BISHNU drain in place, colostomy in place Extremities: Normal to inspection, no edema no cyanosis Neurologic: Normal mental status,The patient is awake, alert and oriented . Results Result Diagram: 03/13/17 0434 03/15/17 0519 Results 24 hrs Laboratory Tests Test 03/16/17 09:44 Lab Scanned Report REFERENCE LAB Medications Medications Current Medications Morphine Sulfate (morphine) 4 mg Q2H PRN IV PAIN LEVEL 6-10 Last administered on 03/16/17 06:20; Admin Dose 4 MG; Start 03/06/17 at 18:00 Acetaminophen (Tylenol Liquid) 650 mg Q6H PRN NGT PAIN AND OR ELEVATED TEMP Last administered on 03/12/17 05:38; Admin Dose 650 MG; Start 03/06/17 at 18:30 Ondansetron HCl (Zofran Inj) 4 mg Q6H PRN IV NAUSEA AND/OR VOMITING Last administered on 03/07/17 04:32; Admin Dose 4 MG; Start 03/06/17 at 18:00 Pantoprazole (Protonix Iv) 40 mg DAILY@06 IV Last administered on 03/16/17 06: 20; Admin Dose 40 MG; Start 03/07/17 at 06:00 Morphine Sulfate (morphine) 2 mg Q2H PRN IV PAIN Last administered on 05:15; Admin Dose 2 MG; Start 03/10/17 at 11:30 Hydralazine HCl (Apresoline) 10 mg Q4H PRN IV SBP >160; Start 03/12/17 at 04:00 Simethicone (Mylicon) 120 mg Q6H PRN PO DISTENSION/GAS/BLOATING Last administered on 03/13/17 05:01; Admin Dose 120 MG; Start 03/12/17 at 10:00 Bisacodyl (Dulcolax Supp) 10 mg BID PRN [place] CONSTIPATION Last administered on 06:20; Admin Dose 10 MG; Start 03/13/17 at 00:00 Docusate Sodium (Colace) 100 mg BID PO Last administered on 03/16/17 08:56; Admin Dose 100 MG; Start 03/13/17 at 21:00 Acetaminophen/ Hydrocodone Bitart ([place] (5/325)) 1 tab Q4H PRN PO MILD PAIN LEVEL 1-3; Start 03/13/17 at 18:30 Acetaminophen/ Hydrocodone Bitart ([place] (5/325)) 2 tab Q4H PRN PO MODERATE PAIN LEVEL 4-6 Last administered on 03/15/17 18:48; Admin Dose 2 TAB; Start at 18:30 Magnesium Hydroxide (Milk Of Mag) 30 ml TID PO Last administered on 03/15/17t 20:37; Admin Dose 30 ML; Start 03/14/17 at 13:00; Stop 03/16/17 at 21:00 MAT MATA MD Mar 16, 2017 11:18
--- NOTE | 2017-03-16 11:42 | PN ---
Date/Time of Note Date/Time of Note DATE: 03/16/17 TIME: 11:36 Assessment/Plan VTE Prophylaxis VTE Prophylaxis Intervention: ambulation Lines/Catheters IV Catheter Type (from Nrsg): Saline Lock Urinary Cath still in place: No Assessment/Plan Chief Complaint/Hosp Course s/p radical cystectomy. Problems: Assessment/Plan Assessment: Pain is well controlled. Tolerating po Constipated: no BM in 2 days Drain output low No signs of infection. PLAN: Continue [place] prn Awaiting ostomy teaching and supply set up Continue ambulating Anticipate d/c tomorrow with home health urostomy care/wound check Will d/c home with [place] and Bactrim x 5 days. Subjective 24 Hr Interval Summary Free Text/Dictation Pt c/o mild abd pain since switching from iv morphine to po norco. Also with constipation, no BM in 2 days. Given suppository and colace this morning. Passing gas Pt feeling better and anticipating d/c home. Exam/Review of Systems Vital Signs Vitals Vital Signs Date Time Temp Pulse Resp B/P Pulse Ox O2 Delivery O2 Flow Rate FiO2 03/16/17 08:00 98.5 79 19 140/62 95 03/15/17 02:10 Room Air 03/12/17 20:00 2.0 Intake and Output 03/15/17 03/15/17 03/16/17 15:00 23:00 07:00 Intake Total 2390 ml 500 ml Output Total 30 ml 1250 ml 1060 ml Balance -30 ml 1140 ml -560 ml Exam Wounds C/D/I. Ostomy pink, draining well. LE strength 4+, + bowel sounds. Results Result Diagram: 03/13/17 0434 03/15/17 0519 Results 24 hrs Laboratory Tests Test 03/16/17 09:44 Lab Scanned Report REFERENCE LAB Medications Medications Current Medications Morphine Sulfate (morphine) 4 mg Q2H PRN IV PAIN LEVEL 6-10 Last administered on 03/16/17 06:20; Admin Dose 4 MG; Start 03/06/17 at 18:00 Acetaminophen (Tylenol Liquid) 650 mg Q6H PRN NGT PAIN AND OR ELEVATED TEMP Last administered on 03/12/17 05:38; Admin Dose 650 MG; Start 03/06/17 at 18:30 Ondansetron HCl (Zofran Inj) 4 mg Q6H PRN IV NAUSEA AND/OR VOMITING Last administered on 03/07/17 04:32; Admin Dose 4 MG; Start 03/06/17 at 18:00 Pantoprazole (Protonix Iv) 40 mg DAILY@06 IV Last administered on 03/16/17 06: 20; Admin Dose 40 MG; Start 03/07/17 at 06:00 Morphine Sulfate (morphine) 2 mg Q2H PRN IV PAIN Last administered on 05:15; Admin Dose 2 MG; Start 03/10/17 at 11:30 Hydralazine HCl (Apresoline) 10 mg Q4H PRN IV SBP >160; Start 03/12/17 at 04:00 Simethicone (Mylicon) 120 mg Q6H PRN PO DISTENSION/GAS/BLOATING Last administered on 03/13/17 05:01; Admin Dose 120 MG; Start 03/12/17 at 10:00 Bisacodyl (Dulcolax Supp) 10 mg BID PRN [place] Last administered on 06:20; Admin Dose 10 MG; Start 03/13/17 at 00:00 Docusate Sodium (Colace) 100 mg BID PO Last administered on 03/16/17 08:56; Admin Dose 100 MG; Start 03/13/17 at 21:00 Acetaminophen/ Hydrocodone Bitart ([place] (5/325)) 1 tab Q4H PRN PO MILD PAIN LEVEL 1-3; Start 03/13/17 at 18:30 Acetaminophen/ Hydrocodone Bitart ([place] (5/325)) 2 tab Q4H PRN PO MODERATE PAIN LEVEL 4-6 Last administered on 03/15/17 18:48; Admin Dose 2 TAB; Start at 18:30 Magnesium Hydroxide (Milk Of Mag) 30 ml TID PO Last administered on 03/15/17 20:37; Admin Dose 30 ML; Start 03/14/17 at 13:00; Stop 03/16/17 at 21:00 BENIGNO WELSH Mar 16, 2017 11:42
[2017-03-16] MEDS: HYDROCODONE/APAP (5/325) TAB PO PRN (12:46)
--- NOTE | 2017-03-16 17:18 | PN ---
Date/Time of Note Date/Time of Note DATE: 03/16/17 TIME: 17:09 Assessment/Plan VTE Prophylaxis VTE Prophylaxis Intervention: SCD's Lines/Catheters IV [facility] Sal[facility] Urinary Cath still in place: No Assessment/Plan Assessment/Plan 1. Bladder cancer, s/p radical cystectomy with urethrectomy/anterior vaginectomy , BPLND, Ileal conduit urinary diversion, stable, follow up with urology 2. Sepsis, tachycardia and fever with abdominal source, resolved 3. Normocytic anemia, stable Exam/Review of Systems Vital Signs Vitals Vital Signs Date Time Temp Pulse Resp B/P Pulse Ox O2 Delivery O2 Flow Rate FiO2 03/16/17 08:00 98.5 79 19 140/62 95 03/15/17 02:10 Room Air 03/12/17 20:00 2.0 Intake and Output 03/15/17 03/15/17 03/16/17 15:00 23:00 07:00 Intake Total 2390 ml 500 ml Output Total 30 ml 1250 ml 1060 ml Balance -30 ml 1140 ml -560 ml Exam Constitutional: alert, oriented, well developed Psych: nl mood/affect, no complaints Head: atraumatic, normocephalic Eyes: EOMI, PERRL, nl conjunctiva, nl lids ENMT: nl external ears & nose, nl lips & teeth, nl nasal mucosa & septum Neck: non-tender, supple Respiratory: clear to auscultation, normal air movement, No congested cough, No crackles/rales, No diminished breath sounds, No intercostal retraction, No labored breathing, No other, No respirations, No tactile fremitus, No wheezing Cardiovascular: nl pulses, regular rate and rhythm, No S3, No S4, No bruits, No diastolic murmur, No edema, No gallop, No irregular rhythm, No jugular venous distention (JVD), No murmurs/extra sounds, No other, No rub, No systolic murmur Gastrointestinal: nl liver, spleen, tender Musculoskeletal: nl extremities to inspection Extremities: normal pulses, No calf tenderness, No clubbing, No cyanosis, No edema, No other, No palpable cord, No pitting pedal edema, No tenderness Neurological: CHILLER TENDER II-XII intact, nl mental status, nl speech, nl strength Lymph: nl lymph nodes Results Result Diagram: 03/13/17 0434 03/15/17 0519 Results 24 hrs Laboratory Tests Test 03/16/17 09:44 Lab Scanned Report REFERENCE LAB Medications Medications Current Medications Morphine Sulfate (morphine) 4 mg Q2H PRN IV PAIN LEVEL 6-10 Last administered on 03/16/17 06:20; Admin Dose 4 MG; Start 03/06/17 at 18:00 Acetaminophen (Tylenol Liquid) 650 mg Q6H PRN NGT PAIN AND OR ELEVATED TEMP Last administered on 03/12/17 05:38; Admin Dose 650 MG; Start 03/06/17 at 18:30 Ondansetron HCl (Zofran Inj) 4 mg Q6H PRN IV NAUSEA AND/OR VOMITING Last administered on 03/07/17 04:32; Admin Dose 4 MG; Start 03/06/17 at 18:00 Pantoprazole (Protonix Iv) 40 mg DAILY@06 IV Last administered on 03/16/17 06: 20; Admin Dose 40 MG; Start 03/07/17 at 06:00 Morphine Sulfate (morphine) 2 mg Q2H PRN IV PAIN Last administered on 05:15; Admin Dose 2 MG; Start 03/10/17 at 11:30 Hydralazine HCl (Apresoline) 10 mg Q4H PRN IV SBP >160; Start 03/12/17 at 04:00 Simethicone (Mylicon) 120 mg Q6H PRN PO DISTENSION/GAS/BLOATING Last administered on 03/13/17 05:01; Admin Dose 120 MG; Start 03/12/17 at 10:00 Bisacodyl (Dulcolax Supp) 10 mg BID PRN [place] CONSTIPATION Last administered on 06:20; Admin Dose 10 MG; Start 03/13/17 at 00:00 Docusate Sodium (Colace) 100 mg BID PO Last administered on 03/16/17 08:56; Admin Dose 100 MG; Start 03/13/17 at 21:00 Acetaminophen/ Hydrocodone Bitart ([place] (5/325)) 1 tab Q4H PRN PO MILD PAIN LEVEL 1-3; Start 03/13/17 at 18:30 Acetaminophen/ Hydrocodone Bitart ([place] (5/325)) 2 tab Q4H PRN PO MODERATE PAIN LEVEL 4-6 Last administered on 03/16/17 12:46; Admin Dose 2 TAB; Start at 18:30 Magnesium Hydroxide (Milk Of Mag) 30 ml TID PO Last administered on 03/15/17 20:37; Admin Dose 30 ML; Start 03/14/17 at 13:00; Stop 03/16/17 at 21:00 AMBER OSUNA MD Mar 16, 2017 17:18
[2017-03-16 19:14] VITALS: BP 125/61; RESP 18
[2017-03-17 05:07] LABS: BASOPHILS % 0.3 % (0.0-2.0); EOSINOPHILS # 0.3 10^3/ul (0.0-0.5); EOSINOPHILS % 2.2 % (0.0-7.0); HEMATOCRIT 26.1 % (37.0-47.0); HEMOGLOBIN 8.6 g/dl (12.0-16.0); LYMPHOCYTES # 1.7 10^3/ul (0.8-2.9); MEAN CORPUSCULAR HEMOGLOBIN 30.5 pg (29.0-33.0); MEAN CORPUSCULAR VOLUME 92.6 fl (82.0-101.0); MEAN PLATELET VOLUME 9.6 fl (7.4-10.4); MONOCYTE # 0.6 10^3/ul (0.3-0.9); MONOCYTES % 4.6 % (0.0-11.0); NEUTROPHIL # 8.8 10^3/ul (1.6-7.5); NEUTROPHILS % 74.3 % (39.0-77.0); NUCLEATED RED BLOOD CELLS # 0.1 10^3/ul (0.0-0.0); NUCLEATED RED BLOOD CELLS% 0.5 /100WBC (0.0-0.0); PLATELET COUNT 478 10^3/UL (140-415); RED BLOOD COUNT 2.82 10^6/ul (4.20-5.40); RED CELL DISTRIBUTION WIDTH 14.5 % (11.5-14.5); WHITE BLOOD COUNT 11.8 10^3/ul (4.8-10.8)
[2017-03-17] MEDS: HYDROCODONE/APAP (5/325) TAB PO PRN ×2 (05:08→09:02)
[2017-03-17] MEDS: PANTOPRAZOLE 40 MG INJ IV SCH (05:15)
[2017-03-17 05:54] LABS: ALBUMIN/GLOBULIN RATIO 1.07; CALCIUM 8.3 mg/dl (8.4-10.2); CREATININE 0.75 mg/dl (0.44-1.00); POTASSIUM 4.4 mmol/L (3.5-5.1); TOTAL PROTEIN 5.8 g/dl (6.1-8.1)
[2017-03-17 08:42] VITALS: BP 124/56; RESP 18
[2017-03-17] MEDS: DOCUSATE SODIUM 100 MG CAP PO SCH (09:02)
[2017-03-17 09:44] LABS: IRON 21 ug/dl (35-150)
[2017-03-17 09:54] LABS: TOTAL IRON BINDING CAPACITY 245 ug/dl (241-421)
[2017-03-17] MEDS: ACETAMINOPHEN 650MG/20.3ML CUP NGT PRN (15:18)
[2017-03-17 16:19] VITALS: BP 112/56; RESP 18
[2017-03-17] MEDS ORDERED: HYDR-3498 PO (16:23)
[2017-03-17] MEDS ORDERED: SULF1TAB31 PO (16:26)
--- NOTE | 2017-03-17 16:30 | DS ---
Date/Time of Note Date/Time of Note DATE: 03/17/17 TIME: 16:27 Discharge Summary Admission/Discharge Info Admit Date/Time Mar 06, 2017 at 05:35 Discharge Date/Time Discharge Diagnosis 1. Bladder cancer, s/p radical cystectomy with urethrectomy/anterior vaginectomy , BPLND, Ileal conduit urinary diversion, stable, follow up with urology 2. Sepsis, tachycardia and fever with abdominal source, resolved 3. Normocytic anemia, stable Patient Condition: Stable Hospital Course 61-year-old female with a past medical history of bladder cancer who was admitted March 06, 2017 for an elective radical cystectomy with anterior vaginectomy and ileal conduit urinary diversion placement which was done February. 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 Patient states she does not see an oncologist, and she seems to think that she will not require chemotherapy after the surgery. She has been diagnosed with uroepithelial carcinoma of the urethra. Currently she is lethargic but denies any significant pain. She also denies fever or shortness of breath. Nursing staff also report no real concerns except for mild hyperglycemia. Patient is not diabetic prior. Patient had radical cystectomy with urethrectomy/anterior vaginectomy, BPLND, Ileal conduit urinary diversion on 03/07/2017 without complications. Patient recovers well. She will follow up with home health and urology outpatient. Home Meds Active Scripts Sulfamethoxazole/Trimethoprim* (Bactrim Ds* Tablet) 1 Each Tablet, 1 TAB PO BID for 5 Days, TAB Prov:AMBER OSUNA MD 03/17/17 Hydrocodone Bit-Acetaminophen (Hydrocodone Bit-APAP) 5-325MG Tablet, 2 TAB PO Q4H Y for MODERATE PAIN LEVEL 4-6, #30 TAB Prov:AMBER OSUNA MD 03/17/17 Follow-up Plan Urology in one week PCP in two weeks Primary Care Provider Not On Staff Doctor Pending Labs Laboratory Tests Test 03/17/17 04:20 White Blood Count 11.810^3/ul (4.8-10.8) Red Blood Count 2.8210^6/ul (4.20-5.40) Hemoglobin 8.6g/dl (12.0-16.0) Hematocrit 26.1% (37.0-47.0) Mean Corpuscular Volume 92.6fl (82.0-101.0) Mean Corpuscular Hemoglobin 30.5pg (29.0-33.0) Mean Corpuscular Hemoglobin Concent 33.0g/dl (32.0-37.0) Red Cell Distribution Width 14.5% (11.5-14.5) Platelet Count 92653^3/UL (140-415) Mean Platelet Volume 9.6fl (7.4-10.4) Neutrophils % 74.3% (39.0-77.0) Lymphocytes % 14.0% (15.0-51.0) Monocytes % 4.6% (0.0-11.0) Eosinophils % 2.2% (0.0-7.0) Basophils % 0.3% (0.0-2.0) Nucleated Red Blood Cells % 0.5/100WBC (0.0-0.0) Neutrophils # 8.810^3/ul (1.6-7.5) Lymphocytes # 1.710^3/ul (0.8-2.9) Monocytes # 0.610^3/ul (0.3-0.9) Eosinophils # 0.310^3/ul (0.0-0.5) Basophils # 0.010^3/ul (0.0-0.1) Nucleated Red Blood Cells # 0.110^3/ul (0.0-0.0) Sodium Level 141mmol/L (135-144) Potassium Level 4.4mmol/L (3.5-5.1) Chloride Level 101mmol/L (97-110) Carbon Dioxide Level 30mmol/L (21-31) Anion Gap 14 (8-16) Blood Urea Nitrogen 13mg/dl (7-20) Creatinine 0.75mg/dl (0.44-1.00) Glucose Level 120mg/dl (70-220) Calcium Level 8.3mg/dl (8.4-10.2) Iron Level 21ug/dl (35-150) Total Iron Binding Capacity 245ug/dl (241-421) Percent Iron Saturation 9% SAT (22-52) Ferritin 296.0ng/ml (11.1-264.0) Total Bilirubin 0.0mg/dl (0.2-1.3) Direct Bilirubin 0.00mg/dl (0.00-0.20) Indirect Bilirubin 0.0mg/dl (0-1.1) Aspartate Amino Transf (AST/SGOT) 63IU/L (15-46) Alanine Aminotransferase (ALT/SGPT) 146IU/L (13-69) Alkaline Phosphatase 138IU/L (42-121) Total Protein 5.8g/dl (6.1-8.1) Albumin 3.0g/dl (3.3-4.9) Globulin 2.80g/dl (1.3-3.2) Albumin/Globulin Ratio 1.07 AMBER OSUNA MD Mar 17, 2017 16:30
== END 2017-03-17 18:25 | disposition home health service (06) | DRG 653 ==
LOC: REC 05:35 → EDSTATUS 08:00 → ICU 18:10 → MS1 03-11 10:27
PROVIDERS: ADMIT Surgery Surgical Oncology; ATTEND Surgery Surgical Oncology
PROC: 30233N1 Transfusion of Nonautologous Red Blood Cells into Peripheral Vein, Percutaneous Approach (ICD-10-PCS; 2017-03-06)
PROC: 0T1807C Bypass Bilateral Ureters to Ileocutaneous with Autologous Tissue Substitute, Open Approach (ICD-10-PCS; principal; 2017-03-07)
PROC: 0TTB0ZZ Resection of Bladder, Open Approach (ICD-10-PCS; 2017-03-07)
PROC: 07BJ0ZX Excision of Left Inguinal Lymphatic, Open Approach, Diagnostic (ICD-10-PCS; 2017-03-07)
PROC: 07BC0ZX Excision of Pelvis Lymphatic, Open Approach, Diagnostic (ICD-10-PCS; 2017-03-07)
PROC: 07BH0ZX Excision of Right Inguinal Lymphatic, Open Approach, Diagnostic (ICD-10-PCS; 2017-03-07)
PROC: 0DBB0ZZ Excision of Ileum, Open Approach (ICD-10-PCS; 2017-03-07)
PROC: 0UBGXZZ Excision of Vagina, External Approach (ICD-10-PCS; 2017-03-07)
PROC: 0TNB0ZZ Release Bladder, Open Approach (ICD-10-PCS; 2017-03-07)
PROC: 0T780DZ Dilation of Bilateral Ureters with Intraluminal Device, Open Approach (ICD-10-PCS; 2017-03-07)
PROC: 0TTD0ZZ Resection of Urethra, Open Approach (ICD-10-PCS; 2017-03-07)
DX: C68.0 Malignant neoplasm of urethra (principal); A41.9 Sepsis, unspecified organism; E87.0 Hyperosmolality and hypernatremia; E88.09 Other disorders of plasma-protein metabolism, not elsewhere classified; T81.4XXA Infection following a procedure, initial encounter; K66.0 Peritoneal adhesions (postprocedural) (postinfection); R73.9 Hyperglycemia, unspecified; R73.03 Prediabetes; D64.9 Anemia, unspecified
CPT/HCPCS: 36430; 36600; 71010; 74010; 80048; 80051; 80053; 80069; 81001; 82728; 82803; 82962; 83036; 83540; 83735; 84100; 84132; 84155; 85014; 85018; 85025; 85610; 85730; 86078; 86850; 86900; 86901; 86920; 87040; 87081; 87086; 88305; 88307; 88331; 93005; 97110; 97116; 97162; 97530; C9113; J0610; J0698; J1100; J1170; J1644; J2250; J2270; J2274; J2370; J2405; J2543; J2765; J3010; J3480; J7040; J7042; J7999; P9016; P9045; P9047

== ENCOUNTER 2017-04-14 08:36 | Emergency (ER) | payer OTHER ==
[~2017-04-14] VITALS: Ht 160 cm; Wt 80.0 kg
[~2017-04-14 08:36] MED LIST changes: -CIPR500T4 PO; +HYDR-3498 PO; +SULF1TAB31 PO
[2017-04-14 08:42] VITALS: Ht 160 cm; Wt 80.0 kg
[2017-04-14] MEDS ORDERED: SOD CHLORIDE 0.9% 1,000 ML IV STA (08:53)
[2017-04-14 09:23] LABS: BASOPHILS % 0.2 % (0.0-2.0); EOSINOPHILS # 0.2 10^3/ul (0.0-0.5); EOSINOPHILS % 2.9 % (0.0-7.0); HEMATOCRIT 34.7 % (37.0-47.0); HEMOGLOBIN 10.7 g/dl (12.0-16.0); LYMPHOCYTES # 1.1 10^3/ul (0.8-2.9); LYMPHOCYTES % 21.9 % (15.0-51.0); MEAN CORPUSCULAR HEMOGLOBIN 27.6 pg (29.0-33.0); MEAN CORPUSCULAR HGB CONC 30.8 g/dl (32.0-37.0); MEAN CORPUSCULAR VOLUME 89.4 fl (82.0-101.0); MEAN PLATELET VOLUME 9.1 fl (7.4-10.4); MONOCYTE # 0.4 10^3/ul (0.3-0.9); MONOCYTES % 8.3 % (0.0-11.0); NEUTROPHILS % 66.3 % (39.0-77.0); PLATELET COUNT 514 10^3/UL (140-415); RED BLOOD COUNT 3.88 10^6/ul (4.20-5.40); RED CELL DISTRIBUTION WIDTH 14.6 % (11.5-14.5); WHITE BLOOD COUNT 5.2 10^3/ul (4.8-10.8)
[2017-04-14 09:42] LABS: ALBUMIN/GLOBULIN RATIO 1.17; BILIRUBIN,INDIRECT 0.1 mg/dl (0-1.1); BILIRUBIN,TOTAL 0.1 mg/dl (0.2-1.3); CALCIUM 9.6 mg/dl (8.4-10.2); CREATININE 0.69 mg/dl (0.44-1.00); POTASSIUM 3.8 mmol/L (3.5-5.1); TOTAL PROTEIN 7.4 g/dl (6.1-8.1)
--- NOTE | 2017-04-14 10:33 | RADRPT ---
PROCEDURE: XR Chest. CLINICAL INDICATION: Abdominal pain TECHNIQUE: Single frontal view of the chest was obtained COMPARISON: Chest x-ray 03/09/2017 FINDINGS: The patient is rotated markedly rightward, limiting evaluation. The previously seen nasogastric tube and right central venous catheter have been removed. The cardiomediastinal silhouette is within normal limits, allowing for image rotation. There is an improved inspiratory result, with increased lung volumes bilaterally. There is increased mild ill-defined opacity at the right lung base which likely represents atelectas is and / or scarring, versus less likely early infiltrate. Mild left basilar atelectasis persist. No pneumothorax or pleural effusion is seen. There are degenerative changes of the visualized spine. IMPRESSION: 1. Increased ill-defined opacity at the right lung base which likely represents atelectasis and / or scarring. Early right basilar infiltrate cannot be completely excluded. 2. Mild persistent left basilar atelectasis. 3. Interval removal of nasogastric tube and right central line. RPTAT: GG Physician Max Date Time Electronically viewed and signed by Physician Max on 04/14/2017 10:32 RC/
--- NOTE | 2017-04-14 10:36 | RADRPT ---
PROCEDURE: XR Abdomen CLINICAL INDICATION: Pain TECHNIQUE: AP supine and upright radiographs of the abdomen were submitted COMPARISON: 03/06/2017 FINDINGS: Bilateral ureteral stents are identified with the distal pigtails seen in the vicinity of an ostomy within the right lateral abdomen. Surgical maximilian are seen in the pelvis and in the epigastrium. The stomach is moderately distended with gas. The bowel gas pattern otherwise reflects a mild ileus without evidence of obstruction. No free air is identified. No organomegaly or discrete mass is evident. No pathological calcification is identified. Moderate degenerative enthesopathy is seen to the thoracic spine. IMPRESSION: 1. Bilateral ureteral diversion with bilateral ureteral stents in place, unchanged. Distally the p igtails remain in the vicinity of an osteotomy within the right lateral abdomen. Surgical maximilian a re seen in the epigastrium and pelvis. 2. Moderate gaseous distension of the stomach with the small bowel gas pattern reflects a mild ileu s. 3. No free air is identified. 4. No pathological calcification is evident. 5. Moderate degenerative enthesopathy involving the thoracic spine. 6. The superficial maximilian have been removed. Physician Sancho Date Time Electronically viewed and signed by Physician Sancho on 04/14/2017 10:36 /
--- NOTE | 2017-04-14 10:57 | ERD ---
ER Documentation Chief Complaint Date/Time DATE: 04/14/17 TIME: 10:53 Chief Complaint ap with diarrhea HPI This is a 53-year-old female with a history of previous bladder cancer with radical cystectomy and who presents to the emergency room for evaluation of abdominal cramping and diarrhea. She states she has had the symptoms for the past 2 days. She states she has felt nauseous as well however she has not vomited. The patient denies any abdominal pain but does state that she has cramping all of her abdomen which is worse with diarrhea. She describes diarrhea as a watery diarrhea with no blood and no mucus. She came to the ER today for evaluation. ROS All systems reviewed and are negative except as per history of present illness. Medications Home Meds Active Scripts Sulfamethoxazole/Trimethoprim* (Bactrim Ds* Tablet) 1 Each Tablet, 1 TAB PO BID for 5 Days, TAB Prov:AMBER OSUNA MD 03/17/17 Hydrocodone Bit-Acetaminophen (Hydrocodone Bit-APAP) 5-325MG Tablet, 2 TAB PO Q4H Y for MODERATE PAIN LEVEL 4-6, #30 TAB Prov:AMBER OSUNA MD 03/17/17 Allergies Allergies: Coded Allergies: No Known Allergy (Unverified , 01/21/17) PMhx/Soc History of Surgery: Yes (BLADDER BIOPSY,APPENDECTOMY,CHOLECYSTECTOMY, HYSTERECTOMY,HERNIA) Anesthesia Reaction: No Hx Neurological Disorder: No Hx Respiratory Disorders: No Hx Cardiac Disorders: No Hx Psychiatric Problems: No Hx Miscellaneous Medical Probl: No Hx Alcohol Use: No Hx Substance Use: No Hx Tobacco Use: No Physical Exam Vitals Vital Signs Date Time Temp Pulse Resp B/P Pulse Ox O2 Delivery O2 Flow Rate FiO2 04/14/17 08:42 98.1 74 18 134/65 99 Physical Exam INITIAL VITAL SIGNS: Reviewed by me GENERAL: The patient is well developed and appropriate for usual state of health in no apparent distress HEENT: Pupils equal, round, and reactive to light. EOMI. There is no scleral icterus. NECK: C-spine is soft and supple, there is no meningismus. There is no cervical lymphadenopathy. LUNGS: Clear to auscultation bilaterally. There are no rales, wheezes or rhonchi. HEART: Regular rate and rhythm, no murmurs, clicks, rubs or gallops. ABDOMEN: Diverting ileostomy, multiple incision scars healing appropriately, previous urostomy tube site, soft, non-tender, non-distended. There are bowel sounds in all four quadrants. No rebound or guarding. EXTREMITIES: There is no peripheral cyanosis or edema. No focal swelling or erythema. NEUROLOGICAL: The patient moves all four extremities with 5/5 strength. Cranial nerves II - XII are intact. Normal gait. Alert and oriented SKIN: There is no apparent rash or petechiae. HEME/LYMPHATIC: There is no evidence of excessive bruising or lymphedema. PSYCHIATRIC: The patient does not appear anxious or depressed. Result Diagram: 04/14/1790404/14/17904 Results 24 hrs Laboratory Tests Test 04/14/17 09:05 White Blood Count 5.210^3/ul Red Blood Count 3.8810^6/ul Hemoglobin 10.7g/dl Hematocrit 34.7% Mean Corpuscular Volume 89.4fl Mean Corpuscular Hemoglobin 27.6pg Mean Corpuscular Hemoglobin Concent 30.8g/dl Red Cell Distribution Width 14.6% Platelet Count 89141^3/UL Mean Platelet Volume 9.1fl Neutrophils % 66.3% Lymphocytes % 21.9% Monocytes % 8.3% Eosinophils % 2.9% Basophils % 0.2% Nucleated Red Blood Cells % 0.0/100WBC Neutrophils # (Manual) 310^3/ul Lymphocytes # 1.110^3/ul Monocytes # 0.410^3/ul Eosinophils # 0.210^3/ul Basophils # 0.010^3/ul Nucleated Red Blood Cells # 0.010^3/ul Sodium Level 143mmol/L Potassium Level 3.8mmol/L Chloride Level 101mmol/L Carbon Dioxide Level 28mmol/L Anion Gap 18 Blood Urea Nitrogen 12mg/dl Creatinine 0.69mg/dl Glucose Level 119mg/dl Calcium Level 9.6mg/dl Total Bilirubin 0.1mg/dl Direct Bilirubin 0.00mg/dl Indirect Bilirubin 0.1mg/dl Aspartate Amino Transf (AST/SGOT) 60IU/L Alanine Aminotransferase (ALT/SGPT) 80IU/L Alkaline Phosphatase 145IU/L Total Protein 7.4g/dl Albumin 4.0g/dl Globulin 3.40g/dl Albumin/Globulin Ratio 1.17 Lipase 108U/L Current Medications Medications (Trade) Dose Ordered Sig/Mai Route PRN Reason Start Time Stop Time Status Last Admin Dose Admin Sodium Chloride (NS) 1,000 ml @ 1,000 mls/hr Q1H STAT IV 04/14/17 08:53 04/14/17 10:02 DC 04/14/17 09:17 Procedures/MDM X-ray Abdomen 1V Interpreted by me: 1. Bilateral ureteral diversion with bilateral ureteral stents in place, unchanged. Distally the pigtails remain in the vicinity of an osteotomy within the right lateral abdomen. Surgical maximilian are seen in the epigastrium and pelvis. 2. Moderate gaseous distension of the stomach with the small bowel gas pattern reflects a mild ileus. 3. No free air is identified. 4. No pathological calcification is evident. 5. Moderate degenerative enthesopathy involving the thoracic spine. 6. The superficial maximilian have been removed. Chest X-ray 1V Interpreted by me: Soft Tissue: No acute abnormalities Bones: No acute abnormalities Mediastinum/Cardiac Silhouette/Lungs: [No acute abnormalities] This 61-year-old female presents to the ER for evaluation of diarrhea. The patient has had multiple surgeries secondary to bladder cancer including a radical cystectomy. The patient did have laboratory in the ER which does not show any gross signs of infection. She was given 1 L fluids. The patient underwent an acute abdominal series which does show partial ileus. The patient is passing gas, she is having diarrhea, and has no abdominal pain at this time. The patient will be discharged at this time with a prescription for Zantac with instructions to follow-up with her primary care physician. She does have an appointment with her primary care physician today at 1 PM. The patient is afebrile at this time, she is hemodynamically stable and tolerating p.o.'s. Differential diagnoses entertained was broad with potential high acuity. Patient has been evaluated for appendicitis, cholecystitis, and other high risk medical and surgical causes of abdominal pain. Ultimately the patient's evaluation is nondiagnostic. Based on the patient's lack of risk factors, as well as the patient's clinical, laboratory, and imaging data, the patient appears to be low risk for these high risk causes of abdominal pain. Departure Diagnosis: Primary Impression: Ileus Additional Impressions: Normocytic anemia Urethral CA Condition: Stable THOMAS DEL RIO DO Apr 14, 2017 10:57
[2017-04-14] MEDS ORDERED: RANI150T9 PO (10:58)
[2017-04-14 11:26] VITALS: BP 129/61; PULSE 69; RESP 18; TEMP 98.3
== END 2017-04-14 11:47 | disposition home or self-care (01) ==
LOC: E/R 08:36
DX: K56.7 Ileus, unspecified (principal); D64.9 Anemia, unspecified; C68.0 Malignant neoplasm of urethra
CPT/HCPCS: 36415; 71010; 74010; 80053; 83690; 85025; J7030; Z7502

== ENCOUNTER 2019-06-20 05:40 | Day surgery (SDC) | payer MEDICARE, OTHER ==
[~2019-06-20] VITALS: Ht 162.6 cm; Wt 84.8 kg
[2019-06-20] VITALS (9 sets, daily range): BP systolic 97–130; BP diastolic 43–65; PULSE 42–55; RESP 14–18; Ht 162.6 cm; Wt 84.8 kg
[~2019-06-20 05:40] MED LIST changes: -HYDR-3498 PO; +HYDR-3601 PO; +RANI-535 PO
[2019-06-20] MEDS ORDERED: LACTATED RINGER'S 1,000 ML IV SCH (07:00)
[2019-06-20] MEDS ORDERED: BUPIVACAINE 0.5% (SDV) 30 ML INJ ONE (07:10)
[2019-06-20] MEDS ORDERED: LIDOCAINE 2% (MDV) 20 ML INJ ONE (07:10)
[2019-06-20] MEDS ORDERED: POLYMYXIN/BACITRACIN 1L IRRIG ONE (07:11)
[2019-06-20] MEDS ORDERED: DEXAMETHASONE 4 MG/ML 1 ML INJ ONE (07:11)
[2019-06-20] MEDS ORDERED: MIDAZOLAM 1 MG/ML 2 ML INJ ONE (07:12)
[2019-06-20] MEDS ORDERED: FENTAnyl 50 MCG/ML VIAL ONE (07:12)
[2019-06-20] MEDS ORDERED: ONDANSETRON 4 MG INJ IV PRN (07:30)
[2019-06-20] MEDS ORDERED: MEPERIDINE 25 MG INJ IV PRN (07:30)
[2019-06-20] MEDS ORDERED: OXYCODONE/ACETAMINOPHEN (5/325) TAB PO PRN ×2 (07:30)
[2019-06-20] MEDS ORDERED: HYDROmorphONE 1 MG/5 ML IV SYRINGE IV PRN ×3 (07:30)
[2019-06-20] MEDS ORDERED: CEFAZOLIN 1 GM INJ ONE (07:49)
[2019-06-20] MEDS ORDERED: PROPOFOL 20 ML ONE (07:49)
[2019-06-20] MEDS ORDERED: KETOROLAC 30 MG INJ ONE (08:45)
== END 2019-06-20 10:42 | disposition home or self-care (01) ==
LOC: SDS 05:40
PROVIDERS: ATTEND Podiatrist Primary Podiatric Medicine
DX: M20.12 Hallux valgus (acquired), left foot (principal); M21.612 Bunion of left foot; M21.622 Bunionette of left foot
CPT/HCPCS: 28110; 28296; C1713; J0690; J1885; J2250; J3010; L3260; J1100